=== PATIENT | male | born 1970 | race Caucasian/White ===

== ENCOUNTER 2018-05-10 00:11 | Inpatient (IN) | payer BC ==
--- OUTSIDE RECORDS SUMMARY | 2018-05-10 00:13 | XMS REPORT ---
:1970 Author Organization eClinicalWorks Care Team Providers Name Role Phone Vale Mcclelland Provider Role Unavailable Allergies, Adverse Reactions, Alerts Substance Reaction Event Type Compazine Info Not Available Drug Allergy Problems Problem Type Condition Code Onset Dates Condition Status Assessment Acute non-recurrent frontal J01.10 Active sinusitis Assessment Cough with hemoptysis R04.2 Active Problem Seasonal allergies J30.2 Active Problem Coronary artery disease involving I25.810 Active coronary bypass graft of [place] heart, angina presence unspecified Problem Cigarette nicotine dependence with F17.218 Active other nicotine-induced disorder Assessment Cigarette nicotine dependence with F17.218 Active other nicotine-induced disorder Problem Gastrointestinal infection A09 Active Problem Coronary stent patent Z95.5 Active Medications Medication Code Code Instructions Start End Status Dosage System Date Date Lisinopril [facility] 89198039680 2.5 MG Oral Active not defined Metoprolol [facility] 22660509991 25 MG Oral Active not Succinate ER defined Atorvastatin [facility] 28687137663 80 MG Oral Active not Calcium defined ProAir HFA [facility] [id number] 108 (90 Base) October 22, Active 2 puffs as MCG/ACT 2018 needed Inhalation every [address] [facility] 48260283919 50 MCG/ACT October 22, Active 1 spray in Propionate Nasally Once a 2018 each day nostril Bromfed DM [facility] 95294081984 30-2-10 MG/5ML Mar 03, Mar 13, Active 10 ml as Orally every 6 2017 2018 needed hrs Results Name Result Date Reference Range Unit Abnormality Flag Chest Pa And Lat (2 Views) Summary Purpose eClinicalWorks Submission
--- OUTSIDE RECORDS SUMMARY | 2018-05-10 00:13 | XMS REPORT ---
:1970 Author Organization eClinicalWorks Care Team Providers Name Role Phone Vale Mcclelland Provider Role Unavailable Allergies, Adverse Reactions, Alerts Substance Reaction Event Type Compazine Info Not Available Drug Allergy Problems Problem Type Condition Code Onset Dates Condition Status Problem Coronary artery disease involving I25.810 Active coronary bypass graft of [place] heart, angina presence unspecified Problem Gastrointestinal infection A09 Active Problem Seasonal allergies J30.2 Active Assessment Coronary stent patent Z95.5 Active Assessment Coronary artery disease involving I25.810 Active coronary bypass graft of [place] heart, angina presence unspecified Problem Coronary stent patent Z95.5 Active Medications Medication Code Code Instructions Start End Status Dosage System Date Date Lisinopril [facility] 22596804286 2.5 MG Oral Active not defined Atorvastatin [facility] 77021370702 80 MG Oral Active not Calcium defined Metoprolol [facility] 37083395293 25 MG Oral Active not Succinate ER defined Fluticasone [facility] 78258659745 50 MCG/ACT October 22, Active 1 spray in Propionate Nasally Once a 2018 each day nostril ProAir HFA [facility] 26820350860 108 (90 Base) October 22, Active 2 puffs as MCG/ACT 2018 needed Inhalation every 6 hrs Results No Known Results Summary Purpose eClinicalWorks Submission
--- OUTSIDE RECORDS SUMMARY | 2018-05-10 00:13 | XMS REPORT ---
:1970 Author Organization eClinicalWorks Care Team Providers Name Role Phone Marvin Anthony Provider Role Unavailable Allergies, Adverse Reactions, Alerts Substance Reaction Event Type Compazine Info Not Available Drug Allergy Problems Problem Type Condition Code Onset Dates Condition Status Problem Coronary artery disease involving I25.810 Active coronary bypass graft of [place] heart, angina presence unspecified Problem Gastrointestinal infection A09 Active Problem Seasonal allergies J30.2 Active Assessment Bronchitis J40 Active Problem Coronary stent patent Z95.5 Active Assessment Upper respiratory disease J39.9 Active Medications Medication Code Code Instructions Start End Status Dosage System Date Date Atorvastatin [facility] 00404726830 80 MG Oral Active not Calcium defined Lisinopril [facility] 66175768803 2.5 MG Oral Active not defined Fluticasone [facility] 10414065929 50 MCG/ACT October 22, Active 1 spray in Propionate Nasally Once a 2018 each day nostril Loratadine-D [facility] 46927353767 5-120 MG Orally October 22October Active 1 tablet 12HR every 12 hrs 2017, as needed 2017 Metoprolol [facility] 79366281695 25 MG Oral Active not Succinate ER defined ProAir HFA [facility] 96248166897 108 (90 Base) October 22 Active 2 puffs as MCG/ACT 2017 needed Inhalation every 6 hrs Results No Known Results Summary Purpose eClinicalWorks Submission
--- OUTSIDE RECORDS SUMMARY | 2018-05-10 00:13 | XMS REPORT ---
:1970 Author Organization eClinicalWorks Care Team Providers Name Role Phone Vale Mcclelland Provider Role Unavailable Allergies No Known Allergies Problems Problem Type Condition Code Onset Dates Condition Status Problem Seasonal allergies J30.2 Active Problem Coronary artery disease involving I25.810 Active coronary bypass graft of [place] heart, angina presence unspecified Problem Cigarette nicotine dependence with F17.218 Active other nicotine-induced disorder Problem Gastrointestinal infection A09 Active Problem Coronary stent patent Z95.5 Active Medications No Known Medications Results No Known Results Summary Purpose eClinicalWorks Submission
[2018-05-10 01:05] LABS: Protime INR 1.02
[2018-05-10 01:06] LABS: Absolute Lymphocytes (CBC) 2.8 K/uL (0.7-4.9); Absolute Monocytes 0.8 K/uL (0.1-1.3); Absolute Neutrophil 3.9 K/uL (1.8-8.0); Basophils % 0.7 % (0-1.3); Eosinophils % 2.5 % (0-4.4); Hematocrit 44.2 % (39.6-49.0); Lymphocytes % 36.3 % (15.3-44.8); MPV 9.5 fL (7.6-11.3); Monocytes % 10.2 % (3.3-12.3); RBC Red Blood Cell Count 4.92 M/uL (4.33-5.43)
[2018-05-10 01:30] LABS: Albumin 3.7 g/dL (3.4-5.0); Bilirubin Direct 0.1 mg/dL (0-0.2); Bilirubin Total 0.4 mg/dL (0.2-1.0); Potassium 3.9 mmol/L (3.5-5.1); Protein, Total 6.9 g/dL (6.4-8.2); Troponin (Emerg Dept Use Only) 0.04 ng/mL (0.0-0.045)
[2018-05-10] MEDS ORDERED: SUCCINYLCHOLINE 20 MG/ML (10 ML) IV ONE (02:15)
[2018-05-10] MEDS ORDERED: ETOMIDATE 20 MG/10 ML VIAL IV ONE (02:15)
--- NOTE | 2018-05-10 02:15 | ER ---
Nurse's Notes [facility] Name: Eb Alvarez Age: 47 yrs Sex: Male : 1970 Arrival Date: 05/10/2018 Time: 00:12 Bed 20 Private MD: Diagnosis: Chest pain, unspecified;Angina pectoris, unspecified Presentation: 05/10 00:15 Presenting complaint: Patient states: that he was woken up by chest pain that radiated fc to his back and both arms. States that the pain is on and off and only lasted approx 1 minute each time. Denies any shortness of breath, or n/v. Transition of care: patient was not received from another setting of care. Onset of symptoms was May 09, 2018 at 22:30. Risk Assessment: Do you want to hurt yourself or someone else? Patient reports no desire to harm self or others. Initial Sepsis Screen: Does the patient meet any 2 criteria? No. Patient's initial sepsis screen is negative. Does the patient have a suspected source of infection? No. Patient's initial sepsis screen is negative. Care prior to arrival: None. 00:15 Method Of Arrival: Ambulatory fc 00:15 Acuity: ABDOUL 3 Triage Assessment: 00:38 General: Appears in no apparent distress. Behavior is calm, cooperative. Pain: ak1 Complains of pain in chest. Historical: - Allergies: 00:29 Compazine; fc - Home Meds: 00:29 Lisinopril Oral once daily [Active]; Metoprolol Tartrate Oral once daily [Active]; fc atorvastatin oral oral once daily [Active]; aspirin 81 mg oral TbEC 1 tab once daily [Active]; - PMHx: 00:29 Myocardial infarction; Hypertension; High Cholesterol; fc - PSHx: 00:29 None; fc - Immunization history:: Last tetanus immunization: unknown, Flu vaccine is up to date. - Social history:: Smoking status: Patient uses tobacco products, smokes one-half pack cigarettes per day, Patient uses alcohol, on a daily basis. 3-4 drinks. - Ebola Screening: : Patient negative for fever greater than or equal to 101.5 degrees Fahrenheit, and additional compatible Ebola Virus Disease symptoms Patient denies exposure to infectious person Patient denies travel to an Ebola-affected area in the 21 days before illness onset. Screenin:27 Abuse screen: Denies threats or abuse. Nutritional screening: No deficits noted. fc Tuberculosis screening: No symptoms or risk factors identified. Fall Risk None identified. Assessment: 01:15 Reassessment: Patient appears in no apparent distress at this time. No changes from ak1 previously documented assessment. Patient is alert, oriented x 3, equal unlabored respirations, skin warm/dry/pink. Patient denies pain at this time. General: Appears in no apparent distress. Behavior is calm, cooperative. Pain: Complains of pain in chest. Pain: Pain does not radiate. Pain began 4 hours ago. Neuro: No deficits noted. Cardiovascular: Reports chest pain, Denies diaphoresis, nausea, shortness of breath, vomiting, Rhythm is sinus rhythm. Respiratory: No deficits noted. GI: No signs and/or symptoms were reported involving the gastrointestinal system. : No signs and/or symptoms were reported regarding the genitourinary system. EENT: No signs and/or symptoms were reported regarding the EENT system. Derm: No signs and/or symptoms reported regarding the dermatologic system. Musculoskeletal: No signs and/or symptoms reported regarding the musculoskeletal system. 02:22 Reassessment: Patient appears in no apparent distress at this time. No changes from ak1 previously documented assessment. Patient is alert, oriented x 3, equal unlabored respirations, skin warm/dry/pink. 04:35 General: pt c/o chest pain. Dr. Crenshaw notified with verbal orders for 50mg tramadol ak1 PO. pt resp even and unlabored, skin warm and dry. pt denies N/V. . Vital Signs: 00:15 BP 108 / 78; Pulse 74; Resp 16; Temp 97.9(O); Pulse Ox 96% on R/A; Weight 120.2 kg (R); fc Height 5 ft. 11 in. (180.34 cm) (R); Pain 0/10; 01:14 BP 109 / 76; Pulse 73; Resp 17; Pulse Ox 95% on R/A; ak1 02:22 BP 89 / 61; Pulse 65; Resp 16; Pulse Ox 96% on R/A; Pain 0/10; ak1 04:37 BP 91 / 57; Pulse 69; Resp 16; Temp 97.9; Pulse Ox 96% on R/A; ak1 00:15 Body Mass Index 36.96 (120.20 kg, 180.34 cm) ED Course: 00:12 Patient arrived in ED. es 00:15 Arm band placed on Patient placed in an exam room, on a stretcher. fc 00:15 Patient has correct armband on for positive identification. Placed in gown. Bed in low fc position. Call light in reach. phototypesetting equipment monitor on. Pulse ox on. NIBP on. 00:22 EKG done, by ED staff, reviewed by Sabas Courtney MD. fc 00:26 Triage completed. fc 00:35 Sabas Courtney MD is Attending Physician. tw4 00:37 Shauna Hernandez, RN is Primary Nurse. ak1 00:37 Inserted saline lock: 20 gauge in right antecubital area, using aseptic technique. ak1 Blood collected. Patient maintains SpO2 saturation greater than 95% on room air. 00:50 X-ray completed. Portable x-ray completed in exam room. Patient tolerated procedure sg4 well. 00:51 XRAY Chest (1 view) Sent. ak1 00:52 No provider procedures requiring assistance completed. ak1 01:01 XRAY Chest (1 view) In Process Unspecified. EDMS 01:15 Door closed. Lights dimmed. ak1 02:13 Natalia Em MD is Hospitalizing Provider. tw4 04:37 Patient admitted, IV remains in place. ak1 Administered Medications: 04:37 Drug: traMADol 50 mg Route: PO; ak1 04:37 Follow up: Response: No adverse reaction ak1 Outcome: 02:14 Decision to Hospitalize by Provider. tw4 04:37 Admitted to Tele accompanied by tech, family with patient, via wheelchair, room 431, ak1 with chart, Report called to [facility] 431 04:37 Condition: stable 04:37 Instructed on the need for admit. 05:09 Patient left the ED. ak1 Signatures: Dispatcher [employer] QUANMI Kanwal Husain Felicia, RN RN Shauna Hernandez, RN RN ak Sabas Courtney MD MD tw4 Patricia Cramer sg4
--- NOTE | 2018-05-10 02:15 | EDPHYS ---
Physician Documentation [facility] Name: Eb Alvarez Age: 47 yrs Sex: Male : 1970 Arrival Date: 05/10/2018 Time: 00:12 Bed 20 Private MD: ED Physician Sabas Courtney HPI: 05/10 03:28 This 47 yrs old Male presents to ER via Ambulatory with complaints of Chest tw4 Pain. 03:28 The patient or guardian reports chest pain that is located primarily in the substernal tw4 area. Onset: today. The pain does not radiate. Associated signs and symptoms: The patient has no apparent associated signs or symptoms. The chest pain is described as aching. Duration: The patient or guardian reports a single episode. Modifying factors: The symptoms are alleviated by nothing. the symptoms are aggravated by nothing. Severity of pain: At its worst the pain was very mild in the emergency department the pain has resolved. The patient has not experienced similar symptoms in the past. Historical: - Allergies: 00:29 Compazine; fc - Home Meds: 00:29 Lisinopril Oral once daily [Active]; Metoprolol Tartrate Oral once daily [Active]; fc atorvastatin oral oral once daily [Active]; aspirin 81 mg oral TbEC 1 tab once daily [Active]; - PMHx: 00:29 Myocardial infarction; Hypertension; High Cholesterol; fc - PSHx: 00:29 None; fc - Immunization history:: Last tetanus immunization: unknown, Flu vaccine is up to date. - Social history:: Smoking status: Patient uses tobacco products, smokes one-half pack cigarettes per day, Patient uses alcohol, on a daily basis. 3-4 drinks. - Ebola Screening: : Patient negative for fever greater than or equal to 101.5 degrees Fahrenheit, and additional compatible Ebola Virus Disease symptoms Patient denies exposure to infectious person Patient denies travel to an Ebola-affected area in the 21 days before illness onset. ROS: 03:28 Constitutional: Negative for fever, chills, and weight loss, Eyes: Negative for injury, tw4 pain, redness, and discharge, Respiratory: Negative for shortness of breath, cough, wheezing, and pleuritic chest pain, Abdomen/GI: Negative for abdominal pain, nausea, vomiting, diarrhea, and constipation, Back: Negative for injury and pain. 03:28 Cardiovascular: Positive for chest pain, Negative for edema, orthopnea, palpitations, paroxysmal nocturnal dyspnea. Exam: 03:28 Constitutional: This is a well developed, well nourished patient who is awake, alert, tw4 and in no acute distress. Head/Face: Normocephalic, atraumatic. Chest/axilla: Normal chest wall appearance and motion. Nontender with no deformity. No lesions are appreciated. Cardiovascular: Regular rate and rhythm with a normal S1 and S2. No gallops, murmurs, or rubs. Normal PMI, no JVD. No pulse deficits. Respiratory: Lungs have equal breath sounds bilaterally, clear to auscultation and percussion. No rales, rhonchi or wheezes noted. No increased work of breathing, no retractions or nasal flaring. Abdomen/GI: Soft, non-tender, with normal bowel sounds. No distension or tympany. No guarding or rebound. No evidence of tenderness throughout. Back: No spinal tenderness. No costovertebral tenderness. Full range of motion. MS/ Extremity: Pulses equal, no cyanosis. Neurovascular intact. Full, normal range of motion. Neuro: Awake and alert, GCS 15, oriented to person, place, time, and situation. Cranial nerves II-XII grossly intact. Motor strength 5/5 in all extremities. Sensory grossly intact. Cerebellar exam normal. Normal gait. Vital Signs: 00:15 BP 108 / 78; Pulse 74; Resp 16; Temp 97.9(O); Pulse Ox 96% on R/A; Weight 120.2 kg (R); fc Height 5 ft. 11 in. (180.34 cm) (R); Pain 0/10; 01:14 BP 109 / 76; Pulse 73; Resp 17; Pulse Ox 95% on R/A; ak1 02:22 BP 89 / 61; Pulse 65; Resp 16; Pulse Ox 96% on R/A; Pain 0/10; ak1 04:37 BP 91 / 57; Pulse 69; Resp 16; Temp 97.9; Pulse Ox 96% on R/A; ak1 00:15 Body Mass Index 36.96 (120.20 kg, 180.34 cm) MDM: 00:35 Patient medically screened. 05/10 00:36 Order name: Basic Metabolic Panel 4 05/10 00:36 Order name: CBC with Diff tw4 05/10 00:36 Order name: LFT's tw4 05/10 00:36 Order name: Magnesium tw4 05/10 00:36 Order name: NT PRO-BNP tw4 05/10 00:36 Order name: PT-INR tw4 05/10 00:36 Order name: Troponin (emerg Dept Use Only) tw4 05/10 00:36 Order name: XRAY Chest (1 view) tw4 05/10 00:36 Order name: EKG; Complete Time: 00:37 tw4 05/10 00:36 Order name: Cardiac monitoring; Complete Time: 00:37 tw4 05/10 00:36 Order name: EKG - Nurse/Tech; Complete Time: 00:37 tw4 05/10 00:36 Order name: IV Saline Lock; Complete Time: 00:37 tw4 05/10 00:36 Order name: Basic Metabolic Panel [facility] 05/10 00:36 Order name: Labs collected and sent; Complete Time: 00:37 tw4 05/10 00:36 Order name: O2 Per Protocol; Complete Time: 00:51 tw4 05/10 00:36 Order name: O2 Sat Monitoring; Complete Time: 00:51 tw4 EC:48 Rate is 75 beats/min. Rhythm is regular. QRS [place] is Normal. [place] interval is normal. QRS tw4 interval is normal. QT interval is normal. No Q waves. T waves are Normal. No ST changes noted. Clinical impression: Normal ECG. Interpreted by me. Reviewed by me. Administered Medications: 04:37 Drug: traMADol 50 mg Route: PO; ak1 04:37 Follow up: Response: No adverse reaction ak1 Disposition: 05/10/18 02:14 Hospitalization ordered by Natalia Em for Observation. Preliminary diagnosis are Chest pain, unspecified, Angina pectoris, unspecified. - Bed requested for Telemetry/MedSurg (observation). - Status is Observation. ak1 - Condition is Stable. - Problem is new. - Symptoms have improved. UTI on Admission? No Signatures: Dispatcher [employer] EDMS Meg Valles RN RN kl Chretien, Felicia, RN RN fc Krenek, Amber, RN RN ak1 Sabas Courtney MD MD tw4 Corrections: (The following items were deleted from the chart) 04:34 02:14 Hospitalization Ordered by Natalia Em MD for Observation. Preliminary kl diagnosis is Chest pain, unspecified; Angina pectoris, unspecified. Bed requested for Telemetry/MedSurg (observation). Status is Observation. Condition is Stable. Problem is new. Symptoms have improved. UTI on Admission? No. tw4 05:09 04:34 05/10/2018 02:14 Hospitalization Ordered by Natalia Em MD for Observation. ak1 Preliminary diagnosis is Chest pain, unspecified; Angina pectoris, unspecified. Bed requested for Telemetry/MedSurg (observation). Status is Observation. Condition is Stable. Problem is new. Symptoms have improved. UTI on Admission? No. kl
--- NOTE | 2018-05-10 04:01 | P.HP ---
Certification for Inpatient Patient admitted to: Observation With expected LOS: <2 Midnights Practitioner: I am a practitioner with admitting privileges, knowledge of patient current condition, hospital course, and medical plan of care. Services: Services provided to patient in accordance with Admission requirements found in Title 42 Section 412.3 of the Code of Federal Regulations Patient History Date of Service: 05/10/18 Reason for admission: chest pain History of Present Illness: Mr Alvarez is a 47 years old male with history of CAD, HTN, dyslipidemia, who start yesterday morning with pressure like chest pain episodes. The pain was substernal located, radiated to both shoulders, 8/10 of intensity, associated with some SOB and dizziness. The pain episode last for about 1 minute each time. He denied nausea, vomiting or sweating episodes. He has had this kind of pain in the past when he had his heart attack. The patient is followed up by Dr Pruett, and he already has scheduled a stress test. lab work shows normal trop I, EKG shows no ST-T abnormalities. At my encounter the patient was chest pain free. Allergies prochlorperazine [From Compazine] Allergy (Verified 05/10/18 02:53) Hives Home medications list reviewed: Yes - Past Medical/Surgical History -: CAD -: HTN -: dyslipidemia Past Surgical History: Reviewed- Non-Contributory - Family History Family History: Reviewed- Non-Contributory - Social History Smoking Status: Current every day smoker Counseled patient to stop smoking for: less than 10 minutes Smoking therapy provided: Yes Alcohol use: Yes CD- Drugs: No Place of Residence: Home Review of Systems 10-point ROS is otherwise unremarkable Physical Examination - Physical Exam General: Alert, In no apparent distress HEENT: Atraumatic, PERRLA, Mucous membr. moist/pink, EOMI, Sclerae nonicteric Neck: Supple, 2+ carotid pulse no bruit, No LAD, Without JVD or thyroid abnormality Respiratory: Clear to auscultation bilaterally, Normal air movement Cardiovascular: Regular rate/rhythm, Normal S1 S2 Gastrointestinal: Normal bowel sounds, No tenderness Musculoskeletal: No tenderness Integumentary: No rashes Neurological: Normal speech, Normal strength at 5/5 x4 extr, Normal tone, Normal affect Lymphatics: No axilla or inguinal lymphadenopathy - Studies Laboratory Data (last 24 hrs) 05/10/18 00:35: PT 12.0, INR 1.02 05/10/18 00:35: WBC 7.8, Hgb 15.4, Hct 44.2, Plt Count 180 05/10/18 00:35: Sodium 141, Potassium 3.9, BUN 14, Creatinine 1.00, Glucose 94, Magnesium 2.0, Total Bilirubin 0.4, AST 25, ALT 61, Alkaline Phosphatase 74 Assessment and Plan - Problems (Diagnosis) (1) CAD (coronary artery disease) Current Visit: Yes Status: Acute Qualifiers: Coronary Disease-Associated Artery/Lesion type: [place] artery [place] vs. transplanted heart: [place] heart Associated angina: with unspecified angina Qualified Code(s): I25.119 - Atherosclerotic heart disease of [place] coronary artery with unspecified angina pectoris (2) Chest pain Current Visit: Yes Status: Acute Qualifiers: Chest pain type: precordial pain Qualified Code(s): R07.2 - Precordial pain (3) HTN (hypertension) Current Visit: Yes Status: Acute Qualifiers: Hypertension type: essential hypertension Qualified Code(s): I10 - Essential (primary) hypertension (4) Dyslipidemia Current Visit: Yes Status: Acute (5) Tobacco abuse Current Visit: Yes Status: Acute - Plan The patient will be admitted to the hospital due to chest pain. Will order serial cardiac enzymes and EKG. Consult cardiology team for evaluation and recommendations. - Advance Directives Does patient have a Living Will: No Does patient have a Durable POA for Healthcare: No - Code Status/Comfort Care Code Status Assessed: Yes Code Status: Full Code
[2018-05-10] MEDS ORDERED: TRAMADOL HCL 50 MG TAB ONE (04:40)
[2018-05-10] MEDS ORDERED: RSI MEDICATION KIT IV ONE (05:35)
[2018-05-10] MEDS: PROPOFOL 1,000 MG/100 ML VIAL IV ONE (05:58)
[2018-05-10] MEDS ORDERED: AMIODARONE HCL 150 MG/3 ML INJ IV ONE ×2 (06:05→11:30)
[2018-05-10] MEDS ORDERED: HEPARIN/D5W 25,000 UNIT/500 ML BAG IV ONE (06:13)
[2018-05-10] MEDS ORDERED: HEPARIN 5000 UNIT/ML 1 ML VIAL ONE (06:19)
[2018-05-10] MEDS ORDERED: MIDAZOLAM HCL 2 MG/2 ML INJ ONE ×3 (06:21→08:55)
[2018-05-10] MEDS ORDERED: PRASUGREL (EFFIENT) 10 MG TAB PO ONE (06:32)
[2018-05-10] MEDS ORDERED: ONDANSETRON 4 MG/2 ML VIAL IV PRN (06:41)
[2018-05-10 06:49] LABS: Arterial Blood Carboxyhemoglob 0.6 % (0-1.5); Blood Gas Oxyhemoglobin 88.5 % (94-97); Blood O2 Saturation 89.5 % (92-98.5)
[2018-05-10] MEDS ORDERED: PRASUGREL (EFFIENT) 10 MG TAB ONE (06:52)
--- NOTE | 2018-05-10 07:03 | EKG ---
Test Date: 2018-05-10 Test Time: 00:22:07 Cemetery Counselor: JESSICA MEASUREMENT RESULTS: Intervals: Rate: 75 SC: 174 QRSD: 102 QT: 388 QTc: 433 [place]: P: 35 SC: 174 QRS: 21 T: 32 INTERPRETIVE STATEMENTS: Normal sinus rhythm Normal ECG No previous ECG available for comparison Electronically Signed On 05-10-18 07:02:49 CELL BIOLOGY SCIENTIST by David Washburn
[2018-05-10] MEDS ORDERED: HEPA 1000U/500MLS 2,000 UNIT/1,000 ML BAG IV ONE (07:05)
[2018-05-10] MEDS ORDERED: LIDOCAINE 1% MPF 30 ML VIAL ONE (07:05)
[2018-05-10] MEDS ORDERED: NA CHLORIDE 0.9% 50 ML ONE ×2 (07:21→08:34)
[2018-05-10] MEDS ORDERED: FENTANYL CITR 100 MCG/2 ML ONE (07:21)
[2018-05-10] MEDS ORDERED: PROPOFOL 1,000 MG/100 ML VIAL IV ONE (07:30)
--- NOTE | 2018-05-10 07:30 | RAD REPORT ---
EXAM DESCRIPTION: Jann Single View05/10/2018 7:15 am CLINICAL HISTORY: Shortness of breath COMPARISON: May 10, 2018 FINDINGS: Endotracheal tube has its tip 4 centimeters above the amol. Nasogastric tube has its ti p in the proximal stomach couple centimeters from the GE junction. The lungs are mildly hazy which may indicate mild interstitial pulmonary edema. The heart is normal size
[2018-05-10 07:54] LABS: Troponin I 0.43 ng/mL (0.0-0.045)
[2018-05-10] MEDS ORDERED: AMIODARONE HCL 450 MG in D5W 241 ML IV SCH ×2 (08:00→17:00)
[2018-05-10] MEDS ORDERED: AMIODARONE HCL 900 MG in Dextrose 5%-Water 482 ML IV SCH (08:00)
--- NOTE | 2018-05-10 08:01 | P.PN ---
Date of Service: 05/10/18 The patient was admitted to the hospital due to chest pain in order to R/O ACS, initial EKG showed no acute ST-T changes, and Troponin I was negative. Then ASA , Statins, lovenox was ordered per chest pain protocol. Before to be moved to the floor, he start complaining of chest pain again, with similar characteristics, pain medication was ordered. As soon the patient was transferred to the room, he become unresponsive, code blue was calling and advance ACLS protocol was started. monitoring and evaluation advisor was consistent with VTACH, he was shocked and successfully cardioverted. Subsequently he was intubated, it was not an easy airway, requiring several attemps, and finally successful with the glydoscope after it arrived to the room from ER. The patient then repeated several times sustained VTACH episodes, all of them were successfully cardioverted. After receive IV Magnesium sulfate and Amiodarone bolus, his rhythm remain sinus. New EKG was able to be done, at this time it was remarkable for ST elevation in anterior leads. I personally discuss the case with Dr Washburn (Cardiology service). 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 The patient then was agitated on the ventilator machine requiring increase the dose of sedative medication.
--- NOTE | 2018-05-10 08:46 | RAD REPORT ---
EXAM DESCRIPTION: Jann Single View05/10/2018 1:00 am CLINICAL HISTORY: Chest pain COMPARISON: February 2018 FINDINGS: The lungs appear clear of acute infiltrate. The heart is normal size IMPRESSION: No acute abnormalities displayed
[2018-05-10] MEDS ORDERED: SODIUM CHLORIDE 0.9% 10ML INJ IV PRN (08:47)
[2018-05-10] MEDS: METOPROLOL TARTRATE 5 MG/5 ML INJ IV SCH ×4 (09:00→21:42)
[2018-05-10] MEDS ORDERED: ASPIRIN EC 81 MG TAB PO SCH (09:00)
[2018-05-10] MEDS ORDERED: PROPOFOL 200 MG/20 ML VIAL IV ONE (09:39)
[2018-05-10] MEDS: PROPOFOL 1,000 MG/100 ML VIAL IV PRN ×2 (09:55→11:52)
[2018-05-10] MEDS ORDERED: ACETAMINOPHEN 325 MG TABLET PO PRN (10:00)
[2018-05-10] MEDS ORDERED: NITROGLYCERIN 0.4 MG/TAB SL PRN (10:00)
[2018-05-10] MEDS ORDERED: NA CHLORIDE 0.9% 1,000 ML IV SCH (10:00)
[2018-05-10] MEDS ORDERED: EPINEPHrine 1 MG/10 ML SYR IV ONE ×2 (11:21→11:30)
[2018-05-10] MEDS ORDERED: MAGNESIUM SULF 1GM/2ML VIAL IM ONE (11:30)
--- NOTE | 2018-05-10 11:48 | ECHO ---
HEIGHT: 5 ft 11 in WEIGHT: 286 lb 0 oz DATE OF STUDY: 05/10/[address]: Natalia Crenshaw MD 2-DIMENSIONAL: YES M.MODE: YES DOPPLER: YES COLOR FLOW: YES TDS: NO PORTABLE: NO DEFINITY: NO BUBBLE STUDY: NO DIAGNOSIS: ANTERIOR STEMI CARDIAC HISTORY: CATHERIZATION: SURGERY: PROSTHETIC VALVE: PACEMAKER: MEASUREMENTS (cm) DIASTOLIC (NORMALS) SYSTOLIC (NORMALS) IVSd 1.0 (0.6-1.2) LA Diam 3.9 (1.9-4.0) LVEF 35-39% LVIDd 4.9 (3.5-5.7) LVIDs 3.9 (2.0-3.5) %FS 19% LVPWd 1.1 (0.6-1.2) Ao Diam 3.3 (2.0-3.7) 2 DIMENSIONAL ASSESSMENT: RIGHT ATRIUM: NORMAL LEFT ATRIUM: DILATED RIGHT VENTRICLE: NORMAL LEFT VENTRICLE: NORMAL TRICUSPID VALVE: NORMAL MITRAL VALVE: NORMAL PULMONIC VALVE: NORMAL AORTIC VALVE: NORMAL PERICARDIAL EFFUSION: NONE AORTIC ROOT: NORMAL LEFT VENTRICULAR WALL MOTION: ANTERIOR, APICAL DISTAL SEPTAL HYPOKINESIS. DOPPLER/COLOR FLOW: MILD MITRAL REGURGITATION. COMMENTS: DEPRESSED LEFT VENTRICULAR EJECTION FRACTION WITH WALL MOTION ABNORMALITY. DILATED LEFT ATRIUM. MILD MITRAL REGURGITATION. TECHNOLOGIST: SIGIFREDO DUDLEY
--- NOTE | 2018-05-10 11:48 | CON ---
A 47-year-old man. History Of Present Illness: Mr. Alvarez is 47. He started having chest pain at 11 last night, came to the emergency room where EKGs and enzymes seemed to be fine. The chest pain he had initially went a way. His troponin was 0.04, and about 6 o'clock this morning roughly half an hour ago, he had a card iac arrest that was V-tach, V-fib. He got amiodarone and he got a cardioverted intubated. He is on propofol drip and he is heavily sedated in sinus rhythm and his EKG shows anterior ST elevation. The patient has a prior history of anterior TN with stents. He had stents placed in his LAD artery, I sophie costello that was done in [place]. We do not have any of the records from that hospitalization. He has been seeing a conciliation court judge ever since then. It was roughly 8 years ago that happened. He contin ues to smoke cigarettes. His outpatient medications had been, it looks like we do not have any list anywhere. Hopefully, the can be helpful and provide those. Apparently, there was lisinopril, m etoprolol, and aspirin, not one of the drugs we usually give dual anti-platelet therapy. Physical Examination: General: He is obese, nonresponsive, intubated. Vital Signs: Blood pressure is 91/39, pulse 56. HEENT: Unremarkable. Lungs: Bilateral breath sounds and found to have mechanical ventilation sounds. Heart: Regular rate and rhythm. Extremities: Mild edema. Distal pulses diminished, palpable. EKG; anterior TN. Assessment And Plan: The patient needs to go to the supervisor laboratory emergently and have an attempt at openi ng up his blocked artery, which is most likely the LAD. The has given us informed consent. He has a creatinine of 1 and a hemo globin of 15, platelet count 180,000. ERNESTINA/TERESITA Voice ID: [id number] Report ID: [id number]
[2018-05-10] MEDS: PANTOPRAZOLE 40 MG INJ IVP SCH (11:53)
[2018-05-10] MEDS: CLOPIDOGREL 75 MG TABLET PO SCH (11:53)
[2018-05-10 12:07] LABS: Blood Gas Oxyhemoglobin 97.4 % (94-97); Blood O2 Saturation 99.1 % (92-98.5)
[2018-05-10] MEDS: ASPIRIN 81 MG CHEWABLE TABLET PO SCH (12:12)
[2018-05-10] MEDS ORDERED: LEVALBUTEROL 0.63 MG/3 ML NEB NEB ONE (13:08)
[2018-05-10] MEDS ORDERED: HYDROCODONE/APAP 7.5/325 MG TAB PO ONE (13:47)
--- NOTE | 2018-05-10 13:51 | PN ---
Date of Progress Note: 05/10/2018 Subjective: Patient seen and examined. Chart reviewed and case discussed with RN and Dr. Washburn. at the bedside. Treatment plan explained. All questions were answered. The patient went for cardiac catheterization after STEMI early this morning and Code Blue. The patient had LAD occlusion, which was re-stented. The patient currently on ventilator and sedated. Medications: List reviewed. Physical Examination: Vital Signs: Temperature 97.9, heart rate 69, blood pressure 91/57, respirations 16, O2 96% on ET tube 60% high-flow FiO2. General: Asleep, intubated and sedated. Not in any acute distress. CV: S1, S2. Regular rate and rhythm. Peripheral pulses present. Respiratory: Diminished breath sounds. No wheezing or stridor. Gastrointestinal: Abdomen is soft, nondistended. Positive bowel sounds. Extremities: No clubbing, cyanosis, edema. Neurologic: Nonfocal. Laboratory Data: Troponin 0.43. Triglycerides 213, cholesterol 140, LDL 65, HDL 32. ABG; pH 6.85, pCO2 77.7, PO2 102, bicarb 12.8. Chest x-ray, personally reviewed, shows ET tube 4 cm above amol. NG tube tip in the proximal stomach. Lungs are mildly hazy which may indicate mild interstitial pulmonary edema. Heart is normal in size. Assessment: A 47-year-old male with: 1. ST-elevation myocardial infarction, status post stent in left anterior descending, which was occluded from previous stent. We will continue on Brilinta and chest pain guidelines. 2. Acute respiratory failure. The patient intubated and sedated. We will wean off as tolerated. 3. Coronary artery disease [place] artery and [place] heart with angina. 4. Essential hypertension, currently hypotensive, likely due to sedation. 5. Dyslipidemia. 6. Nicotine dependence with cigarette smoking continuous full counseling will assistant corporation counsel once the patient is awake. 7. Gastrointestinal and deep venous thrombosis prophylaxis addressed. Plan: Monitor closely in ICU setting. /TERESITA Voice ID: [id number] Report ID: [id number]
--- NOTE | 2018-05-10 15:08 | RAD REPORT ---
EXAM DESCRIPTION: Shoulder Right 2 View - 05/10/2018 2:23 pm CLINICAL HISTORY: Shoulder pain COMPARISON: None. TECHNIQUE: Internal and external rotation views of the right shoulder were obtained. FINDINGS: There is no fracture or dislocation. Mild degenerative changes are present at the AC join t. Patient has degenerative change along the undersurface of the acromion and narrowing of the acromi al humeral joint space. No rib abnormality of the upper chest. No pneumothorax ir acute parenchymal f inding of the upper chest. IMPRESSION: Degenerative changes to the acromion and acromial humeral joint space. No fracture or acute right shoulder finding.
--- NOTE | 2018-05-10 15:32 | EKG ---
Test Date: 2018-05-10 Test Time: 06:07:50 Putty Patcher: RT MEASUREMENT RESULTS: Intervals: Rate: 111 WA: 166 QRSD: 106 QT: 356 QTc: 484 [place]: P: 67 WA: 166 QRS: 20 T: 40 INTERPRETIVE STATEMENTS: Sinus tachycardia Anterior infarct, possibly acute ACUTE MO Abnormal ECG Compared to ECG 05/10/2018 00:22:07 Myocardial infarct finding now present Sinus rhythm no longer present Electronically Signed On 05-10-18 15:31:44 METAL PRODUCTS FABRICATOR ASSEMBLER by David Washburn
[2018-05-10] MEDS: FENTANYL CITR 100 MCG/2 ML IV PRN (16:50)
--- NOTE | 2018-05-10 20:06 | OP ---
Surgeon: David Washburn MD Procedures: Left heart catheterization, coronary angiography, percutaneous coronary intervention of a totally occluded proximal LAD which was successful. Indication: Acute ST-elevation AL. Procedure Findings: The patient's right coronary, circumflex, and left main were free of any signifi cant disease. His LAD had been stented previously and right within the stents there was 100% occlusi on. LENNY 0 flow. Did not really pickle solution maker any collateral flow to the distal part of the LAD from the right. As soon as we saw this, he was given Angiomax, Effient 60 mg, and aspirin. We used an XB 3.5 guide catheter, successfully crossed the lesion with a wire. We could not advance the balloon even a 2.0 x 8, so we had to exchange guides. An XB 4 similarly gave no support. An XB 4.5 with side hol es successfully gave good support. We were able to cross the lesion, pre-dilated with a 2.0 x 8 ball oon, then a 3.0 x 12 balloon. There were probably 15 separate inflations with these 2 balloons. We then felt we had it dilated enough to place a stent, so a 3.0 x 20 stent was advanced, and it was suc cessfully deployed right across the lesion. The angiographic result revealed 0% stenosis, LENNY grade 3 flow. No LV gram was done. We will follow him with serial echocardiography. During the procedur e, he was intubated and on propofol and Versed with the help of Dr. Sherwood from Anesthesia with his sedation. After prep and drape, we used 1% lidocaine to anesthetize the skin over the right femoral artery, entered it with an 18-gauge needle, 6-Romansh sheath, 6-Romansh JL4 and 6-Romansh 3DRC, and then the guide catheter as described above. The 1 that worked was an XB 4.5 with side holes and the isreal l angiographic result was excellent. He was given Angiomax as soon as the sheath was in, activated clotting time was demonstra harry to be more than 400 seconds. ERNESTINA/TERESITA Voice ID: [id number] Report ID: [id number]
[2018-05-10] MEDS: HYDROCODONE/APAP 7.5/325 MG TAB PO PRN (20:15)
[2018-05-10] MEDS: ATORVASTATIN 80 MG TAB PO SCH (21:42)
[2018-05-11] MEDS: HYDROCODONE/APAP 7.5/325 MG TAB PO PRN ×4 (03:10→18:03)
[2018-05-11] MEDS: METOPROLOL TARTRATE 5 MG/5 ML INJ IV SCH (03:38)
[2018-05-11] MEDS: FENTANYL CITR 100 MCG/2 ML IV PRN (03:39)
[2018-05-11 05:26] LABS: Absolute Lymphocytes (CBC) 1.5 K/uL (0.7-4.9); Absolute Monocytes 1.2 K/uL (0.1-1.3); Absolute Neutrophil 9.2 K/uL (1.8-8.0); Basophils % 0.2 % (0-1.3); Eosinophils % 0.3 % (0-4.4); Hematocrit 43.4 % (39.6-49.0); Lymphocytes % 12.6 % (15.3-44.8); MPV 9.2 fL (7.6-11.3); Monocytes % 9.8 % (3.3-12.3); RBC Red Blood Cell Count 4.83 M/uL (4.33-5.43)
--- NOTE | 2018-05-11 06:03 | EKG ---
Test Date: 2018-05-10 Test Time: 08:53:06 Slitting Machine Operator: LUI MEASUREMENT RESULTS: Intervals: Rate: 99 LA: 162 QRSD: 102 QT: 384 QTc: 492 [place]: P: 60 LA: 162 QRS: 38 T: 65 INTERPRETIVE STATEMENTS: Sinus rhythm with occasional premature ventricular complexes Low voltage QRS Anterolateral infarct, age undetermined Abnormal ECG Compared to ECG 05/10/2018 06:07:50 Ventricular premature complex(es) now present Low QRS voltage now present Sinus tachycardia no longer present Myocardial infarct finding still present Electronically Signed On 05-11-18 06:03:20 MAINTENANCE PLUMBER by David Washburn
[2018-05-11 07:16] LABS: ALT/SGPT 231 U/L (12-78); Albumin 3.6 g/dL (3.4-5.0); Alkaline Phosphatase 67 U/L (45-117); BUN Blood Urea Nitrogen 9 mg/dL (7-18); Bicarbonate 29 mmol/L (21-32); Bilirubin Total 1.1 mg/dL (0.2-1.0); Glucose Level 102 mg/dL (74-106); Potassium 4.1 mmol/L (3.5-5.1); Protein, Total 6.7 g/dL (6.4-8.2); Sodium Level 137 mmol/L (136-145)
[2018-05-11 07:29] LABS: AST/SGOT 566 U/L (15-37)
[2018-05-11] MEDS: CLOPIDOGREL 75 MG TABLET PO SCH (08:08)
[2018-05-11] MEDS: ASPIRIN 81 MG CHEWABLE TABLET PO SCH (08:08)
[2018-05-11] MEDS: METOPROLOL XL 25 MG TAB PO SCH ×2 (08:10→20:52)
[2018-05-11] MEDS: PANTOPRAZOLE 40 MG INJ IVP SCH (08:11)
--- NOTE | 2018-05-11 08:32 | P.CNS ---
Date of Consult: 05/10/18 Chief Complaint: Respiratory failure History of Present Illness: Patient is 47 years of age admitted with a card infarction occlusion of left anterior descending artery developed some pulmonary edema had to be intubated at the time of my evaluation patient was extremely agitated on a propofol drip at duration satisfactory hemodynamically stable currently he is an active smoker history of prior stents Allergies prochlorperazine [From Compazine] Allergy (Verified 05/10/18 02:53) Hives Home Medications: Atorvastatin Calcium [Lipitor] 80 mg PO DAILY 05/10/18 Lisinopril [Zestril] 2.5 mg PO DAILY 05/10/18 Metoprolol Succinate 25 mg PO DAILY 05/10/18 - Past Medical/Surgical History Diabetic: No -: CAD -: PA -: dyslipidemia -: LAD stent - Social History Smoking Status: Current every day smoker Alcohol use: Yes CD- Drugs: No Caffeine use: Yes Place of Residence: Home Review of Systems is unable to be obtained Physical Examination Temp Pulse Resp BP Pulse Ox 98.3 F 102 H 18 109/66 94 05/11/18 04:00 05/11/18 08:10 05/11/18 07:00 05/11/18 08:10 05/11/18 07:00 General: Moderate distress Respiratory: Clear to auscultation bilaterally Cardiovascular: No edema, Regular rate/rhythm Gastrointestinal: Normal bowel sounds, Soft and benign - Problems (1) Respiratory failure Current Visit: Yes Status: Acute Plan: Patient is 47 years of age admitted with complete occlusion of his left anterior descending artery he was successfully recannulized intubated transferred here to the ICU is currently very agitated hemodynamically stable oxygenation satisfactory chest x-ray no obvious pulmonary edema opponents were very elevated patient's propofol was stopped and was successfully extubated he has a prior history of coronary artery disease with a stent placement advice to stop smoking labs reviewed the prior to intubation he was hypoxic hypercapnic and acidotic patient was successfully extubated and this morning is very alert responsive cooperative denies any complaints blood pressure is slightly low oxygenation satisfactory Qualifiers: Chronicity: acute
--- NOTE | 2018-05-11 16:19 | PN ---
Date of Progress Note: 05/11/2018 Subjective: The patient was seen today on 05/11/2018 for followup. Mr. Alvarez is 47 and was admitted with ST-elevation myocardial infarction, cardiac arrest, underwent an emergency catheterization yest erday with re-stenting of a proximal LAD, complete closure of the stent. An overnight he did very we ll. He has no issues as far as the right groin. No hematoma. He is not having any chest pain. He is in normal sinus rhythm without any telemetry changes. We will move up to a regular room, telemetr y this afternoon. He remains on aspirin, Plavix, beta-blockers, and a statin. He can go home tomorr ow. CRISTINA/TERESITA Voice ID: [id number] Report ID: [id number]
--- NOTE | 2018-05-11 17:28 | P.PN ---
Subjective Date of Service: 05/11/18 Chief Complaint: Respiratory failure Subjective: No new changes, No C/O voiced, Tolerating diet, Ambulating, Improving Patient seen and examined at bedside. No family at bedside. Chart reviewed and case discussed with nursing staff. Review of Systems As noted Physical Examination - Vital Signs Temperature: 98.5 F Blood Pressure: 89/60 Pulse: 100 Respirations: 18 Pulse Ox (%): 92 - Physical Exam General: Alert, In no apparent distress, Oriented x3 HEENT: Atraumatic, PERRLA, EOMI Neck: Supple, JVD not distended Respiratory: Clear to auscultation bilaterally, Normal air movement Cardiovascular: Regular rate/rhythm, Normal S1 S2 Gastrointestinal: Normal bowel sounds, No tenderness Musculoskeletal: No tenderness Integumentary: No rashes Neurological: Normal speech, Normal tone, Normal affect Lymphatics: No axilla or inguinal lymphadenopathy Assessment And Plan - Plan A 47-year-old male with: ST-elevation myocardial infarction, status post stent in left anterior descending, which was occluded from previous stent. We will continue on Brilinta and chest pain guidelines. Acute respiratory failure. The patient intubated and sedated initially (05/09/2018). Successfully extubated yesterday evening (05/10/18). Oxygenating well on room air, denies any respiratory distress at this time. Coronary artery disease [place] artery and [place] heart with angina. Essential hypertension Blood pressure improved. Continue medications as tolerated Dyslipidemia. Continue statin Nicotine dependence with cigarette smoking Counseled extensively on smoking cessation. DVT prophylaxis: Aspirin and Plavix GI prophylaxis: Protonix Diet: Heart healthy Disposition: Transferred to the floor. Monitor overnight, likely discharge home tomorrow if doing well symptomatically. Discharge Plan: Home Plan to discharge in: 24 Hours Physician Review: Patient Assessed, Agree with Above Assessment and Plan Critical Care: Yes Time Spent Managing PTS Care (In Minutes): 40
[2018-05-11] MEDS: ATORVASTATIN 80 MG TAB PO SCH (20:52)
[2018-05-12 04:40] LABS: Absolute Lymphocytes (CBC) 2.3 K/uL (0.7-4.9); Absolute Monocytes 1.3 K/uL (0.1-1.3); Absolute Neutrophil 5.7 K/uL (1.8-8.0); Basophils % 0.5 % (0-1.3); Eosinophils % 1.7 % (0-4.4); Hematocrit 43.6 % (39.6-49.0); Lymphocytes % 24.2 % (15.3-44.8); MPV 9.6 fL (7.6-11.3); Monocytes % 13.6 % (3.3-12.3); RBC Red Blood Cell Count 4.78 M/uL (4.33-5.43)
[2018-05-12 04:44] LABS: ALT/SGPT 195 U/L (12-78); Albumin 3.7 g/dL (3.4-5.0); Alkaline Phosphatase 69 U/L (45-117); BUN Blood Urea Nitrogen 11 mg/dL (7-18); Bicarbonate 29 mmol/L (21-32); Bilirubin Total 0.9 mg/dL (0.2-1.0); Glucose Level 99 mg/dL (74-106); Protein, Total 7.3 g/dL (6.4-8.2); Sodium Level 138 mmol/L (136-145)
[2018-05-12 04:51] LABS: AST/SGOT 403 U/L (15-37)
[2018-05-12] MEDS: METOPROLOL XL 25 MG TAB PO SCH (08:37)
[2018-05-12] MEDS: PANTOPRAZOLE 40 MG INJ IVP SCH (08:37)
[2018-05-12] MEDS: ASPIRIN 81 MG CHEWABLE TABLET PO SCH (08:38)
[2018-05-12] MEDS: CLOPIDOGREL 75 MG TABLET PO SCH (08:38)
[2018-05-12] MEDS ORDERED: DOCUSATE NA 100 MG CAP PO SCH (09:00)
--- NOTE | 2018-05-12 10:09 | EKG ---
Test Date: 2018-05-12 Test Time: 09:34:42 Inspector Elevators: LUI MEASUREMENT RESULTS: Intervals: Rate: 81 VA: 170 QRSD: 100 QT: 388 QTc: 450 [place]: P: 25 VA: 170 QRS: 46 T: 81 INTERPRETIVE STATEMENTS: Normal sinus rhythm Low voltage QRS Possible Anterolateral infarct, age undetermined Abnormal ECG Compared to ECG 05/10/2018 08:53:06 Ventricular premature complex(es) no longer present Myocardial infarct finding still present Electronically Signed On 05-12-18 10:09:02 PEN TESTER by David Washburn
--- NOTE | 2018-05-12 13:05 | P.DS ---
Admission Date: 05/10/18 Discharge Date: 05/12/18 Disposition: ROUTINE DISCHARGE Discharge Condition: GOOD Reason for Admission: Respiratory failure, Cardiac arrest, STEMI w/ cardiac re- stenting Consultations: Cardiology, Dr. Washburn Pulmonology, Dr. Soto Procedures: 05/10/2018: Cardiac cath w/ re-stenting of LAD 05/10/2018: Intubation and sedation 05/11/2018: Successful extubation Brief History of Present Illness: Mr Alvarez is a 47 years old male with history of CAD, HTN, dyslipidemia, who start yesterday morning with pressure like chest pain episodes. The pain was substernal located, radiated to both shoulders, 8/10 of intensity, associated with some SOB and dizziness. The pain episode last for about 1 minute each time. He denied nausea, vomiting or sweating episodes. He has had this kind of pain in the past when he had his heart attack. The patient is followed up by Dr Pruett, and he already has scheduled a stress test. lab work shows normal trop I, EKG shows no ST-T abnormalities. At my encounter the patient was chest pain free. Hospital Course: Mr. Alvarez was admitted to the hospital due to chest pain in order to rule out ACS, initial EKG showed no acute ST-T-wave changes, and troponin was negative. Chest pain protocol was started with aspirin, statin and Lovenox. He was getting ready to transfer to the floor, when he complained of chest pain in the ER and he was given some pain medications and transfer to the floor. As soon as patient was brought to the floor, he became unresponsive and a code blue was called advanced ACLS protocol was started. Cardiac monitoring was consistent with V-tach he was shocked at successfully cardioverted. He was subsequently intubated, which did require several times because is not easy airway. He was finally successfully intubated and he then had several episodes of V-tach, all of them were successfully cardioverted. He was given IV magnesium sulfate and amiodarone bolus, which stabilized this his rhythm. A repeat EKG was done which was remarkable for ST elevation in anterior leads. He was then transferred to the ICU cardiology was consulted. He was started on the heparin drip along with an amiodarone drip. He was taken to the cardiac cath lab technologist for further evaluation. He did have a previous occluded stent in the left anterior descending coronary artery which required re-stenting. He he was successfully extubated on May 10, 2018, was oxygenating well on room air and was denying any respiratory distress. He was started on aspirin, Plavix, statin, lisinopril and metoprolol post catheterization. He was then transferred to the floor as he was stable. He was then cleared from cardiology point of view for discharge. At the time of discharge, patient was hemodynamically stable, tolerating heart healthy diet, ambulating without problems, and was chest pain free. Vital Signs/Physical Exam: Temp Pulse Resp BP Pulse Ox 99.1 F 81 18 104/67 93 05/12/18 09:00 05/12/18 09:00 05/12/18 09:00 05/12/18 09:00 05/12/18 09:00 General: Alert, In no apparent distress, Oriented x3 HEENT: Atraumatic, PERRLA, EOMI Neck: Supple, JVD not distended Respiratory: Clear to auscultation bilaterally, Normal air movement Cardiovascular: Regular rate/rhythm, Normal S1 S2 Gastrointestinal: Normal bowel sounds, No tenderness Musculoskeletal: No tenderness Integumentary: No rashes Neurological: Normal speech, Normal tone, Normal affect Lymphatics: No axilla or inguinal lymphadenopathy Laboratory Data at Discharge: WBC 9.6 K/uL (4.3-10.9) D 05/12/18 03:32 Hgb 15.2 g/dL (13.6-17.9) 05/12/18 03:32 Hct 43.6 % (39.6-49.0) 05/12/18 03:32 Plt Count 188 K/uL (152-406) 05/12/18 03:32 PT 12.0 SECONDS (9.5-12.5) 05/10/18 00:35 INR 1.02 05/10/18 00:35 Sodium 138 mmol/L (136-145) 05/12/18 03:32 Potassium 4.0 mmol/L (3.5-5.1) 05/12/18 03:32 BUN 11 mg/dL (7-18) 05/12/18 03:32 Creatinine 0.90 mg/dL (0.55-1.3) 05/12/18 03:32 Glucose 99 mg/dL (74-106) 05/12/18 03:32 Magnesium 2.0 mg/dL (1.8-2.4) 05/10/18 00:35 Total Bilirubin 0.9 mg/dL (0.2-1.0) 05/12/18 03:32 AST 403 U/L (15-37) H* D 05/12/18 03:32 ALT 195 U/L (12-78) H 05/12/18 03:32 Alkaline Phosphatase 69 U/L (45-117) 05/12/18 03:32 Troponin I > 40.00 ng/mL (0.0-0.045) H* D 05/10/18 14:41 Triglycerides 213 mg/dL (<150) H 05/10/18 07:12 Cholesterol 140 mg/dL (<200) 05/10/18 07:12 HDL Cholesterol 32 mg/dL (40-60) L 05/10/18 07:12 Cholesterol/HDL Ratio 4.38 05/10/18 07:12 Home Medications: RX: Aspirin Chewable [Aspirin Chewable*] 81 mg PO DAILY tab.chew 05/12/18 RX: Atorvastatin Calcium [Lipitor] 80 mg PO DAILY #30 tab 05/12/18 RX: Clopidogrel Bisulfate [Plavix*] 75 mg PO DAILY #60 tablet 05/12/18 RX: Docusate [Colace Cap*] 100 mg PO BID cap 05/12/18 RX: Lisinopril [Zestril] 2.5 mg PO DAILY #30 tablet 05/12/18 RX: Metoprolol Succinate [Toprol Xl*] 25 mg PO BID #60 tab 05/12/18 RX: Nitroglycerin [Nitrostat*] 0 mg SL UD PRN #15 tab 05/12/18 New Medications: RX: Atorvastatin Calcium [Lipitor] 80 mg PO DAILY #30 tab RX: Clopidogrel Bisulfate [Plavix*] 75 mg PO DAILY #60 tablet RX: Lisinopril [Zestril] 2.5 mg PO DAILY #30 tablet RX: Metoprolol Succinate [Toprol Xl*] 25 mg PO BID #60 tab RX: Nitroglycerin [Nitrostat*] 0 mg SL UD PRN #15 tab PRN Reason: Chest Pain Patient Discharge Instructions: 1) Please follow up with your primary care physician in 1 week. 2) Please follow up with your bulk sealer in 2 weeks. 3 ) ST-elevation myocardial infarction: You were admitted for chest pain, and underwent an angiogram with re-stenting of your Left anterior descending coronary artery. Your previous stent was occluded. It is important that you take all the medications as prescribed. New medications: Plavix and aspirin. Continue taking metoprolol, lisinopril and atorvastatin as prescribed. 4) Acute respiratory failure: you were also intubated during this hospitalization and then extubated successfully. Diet: AHA Activity: No lifting more than 10 lbs Followup: Mitch Pruett MD [ACTIVE - CAN ADMIT] - Claudia Mcclelland NP [Primary Care Provider] - Physician Review: Patient Assessed, Agree with Above Assessment and Plan Time spent managing pt's care (in minutes): 55
--- NOTE | 2018-05-12 13:05 | PN ---
Subjective: Mr. Alvarez seems to be doing very well. I think it is okay to discharge him. He should get prescription for Plavix, Lipitor, metoprolol, and nitroglycerin. He should get an EKG today befo re being discharged. He should have follow up with either me or Dr. Pruett in about 2 weeks. He sh ould absolutely quit all tobacco use. He seems to understand this. ERNESTINA/TERESITA Voice ID: [id number] Report ID: [id number]
== END 2018-05-12 12:10 | disposition home or self-care (01) | DRG 246 ==
LOC: ER 00:11 → ERHOLD 02:14 → 4TH 04:42 → 3RD-ICU 05:47 → OBSVTOIN 08:10 → 4TH 05-11 18:07
PROVIDERS: ADMIT Internal Medicine; ATTEND Family Medicine
PROC: 027034Z Dilation of Coronary Artery, One Artery with Drug-eluting Intraluminal Device, Percutaneous Approach (ICD-10-PCS; principal; 2018-05-10)
PROC: 4A023N7 Measurement of Cardiac Sampling and Pressure, Left Heart, Percutaneous Approach (ICD-10-PCS; 2018-05-10)
PROC: B211YZZ Fluoroscopy of Multiple Coronary Arteries using Other Contrast (ICD-10-PCS; 2018-05-10)
PROC: 5A2204Z Restoration of Cardiac Rhythm, Single (ICD-10-PCS; 2018-05-10)
PROC: 0BH17EZ Insertion of Endotracheal Airway into Trachea, Via Natural or Artificial Opening (ICD-10-PCS; 2018-05-10)
PROC: 5A1935Z Respiratory Ventilation, Less than 24 Consecutive Hours (ICD-10-PCS; 2018-05-10)
DX: I21.3 ST elevation (STEMI) myocardial infarction of unspecified site (principal); I46.9 Cardiac arrest, cause unspecified; J96.00 Acute respiratory failure, unspecified whether with hypoxia or hypercapnia; I47.2 Ventricular tachycardia; T82.855A Stenosis of coronary artery stent, initial encounter; F17.210 Nicotine dependence, cigarettes, uncomplicated; I10 Essential (primary) hypertension; E78.5 Hyperlipidemia, unspecified; I25.2 Old myocardial infarction; Z95.5 Presence of coronary angioplasty implant and graft; I25.119 Atherosclerotic heart disease of native coronary artery with unspecified angina pectoris; I95.9 Hypotension, unspecified; Y92.019 Unspecified place in single-family (private) house as the place of occurrence of the external cause
CPT/HCPCS: 36415; 71045; 80048; 80053; 80061; 80076; 82805; 83735; 83880; 84484; 85025; 85347; 85610; 92928; 93005; 93306; 93454; 94002; 94003; 99285; C1725; C1760; C1877; C1893; C9113; J0171; J0282; J0330; J0583; J1644; J2250; J2704; J3010; J3475; J7030; J7060

== ENCOUNTER 2019-07-23 15:31 | Emergency (ER) | payer BC ==
--- OUTSIDE RECORDS SUMMARY | 2019-07-23 15:33 | XMS REPORT ---
:1970 Author Organization [employer] Care Team Providers Name Role Phone Claudia Mcclelland Provider Role Unavailable Allergies, Adverse Reactions, Alerts Substance Reaction Event Type Compazine Info Not Available Drug Allergy Problems Problem Type Condition Code Onset Dates Condition Status Problem Coronary stent patent Z95.5 Active Problem Coronary artery disease involving I25.810 Active coronary bypass graft of [place] heart, angina presence unspecified Problem Gastrointestinal infection A09 Active Assessment Screening PSA (prostate specific Z12.5 Active antigen) Assessment Encounter for general adult medical Z00.00 Active examination without abnormal findings Problem Cigarette nicotine dependence in F17.211 Active remission Problem Essential hypertension I10 Active Problem Hospital discharge follow-up Z09 Active Problem Hemorrhoids, unspecified hemorrhoid K64.9 Active type Problem Encounter for general adult medical Z00.00 Active examination without abnormal findings Problem Seasonal allergies J30.2 Active Problem Sleep apnea in adult G47.30 Active Problem Screening PSA (prostate specific Z12.5 Active antigen) Medications Medication Code Code Instructions Start End Status Dosage System Date Date Lisinopril [facility] [place] 04124007131 2.5 MG Oral Active not defined Atorvastatin [facility] [place] 70439575911 80 MG Oral Active not Calcium defined Fluticasone ND 23726069632 50 MCG/ACT July Active 1 spray in Propionate Nasally Once a 2018 each day nostril ProAir HFA [facility] [place] [id number] 108 (90 Base) October 22, Active 2 puffs as MCG/ACT 2018 needed Inhalation every 6 hrs Aspirin Adult ND 43458778921 81 MG Orally Active 1 tablet Low Strength Once a day Metoprolol ND 51536786050 25 MG Oral BID Active 1 tablet Succinate ER Pseudoeph-Bromph [facility] [place] [address]-63 Active not en-DM defined Nitroglycerin [facility] [place] 68078696411 0.4 MG Active as Sublingual directed Colace [facility] [place] 15163255543 100 MG Orally Active 1 capsule Twice a day as needed Clopidogrel ND 34795463556 75 MG Orally Active 1 tablet Bisulfate Once a day Results No Known Results Summary Purpose [employer] Submission
--- OUTSIDE RECORDS SUMMARY | 2019-07-23 15:33 | XMS REPORT ---
:1970 Author Organization [facility] Address [address] [place] [address] Dr. Cortez [address] [place] [id number] Care Team Providers Name Role Phone Unavailable Unavailable Unavailable Problems This patient has no known problems. Allergies, Adverse Reactions, Alerts This patient has no known allergies or adverse reactions. Medications This patient has no known medications. Encounters Start End Encounter Admission Attending Care Care Encounter Date/Time Date/Time Type Type Clinicians Facility Department ID 2018 2018 Outpatient E NE MED [id number] 12:22:00 12:22:00
[2019-07-23] MEDS ORDERED: IBUPROFEN 400 MG TAB ONE (16:16)
[2019-07-23] MEDS ORDERED: TETANUS & DIPHTHERIA TOX,ADULT 0.5 ML VIAL ONE (16:16)
--- NOTE | 2019-07-23 16:33 | ER ---
Nurse's Notes [facility] Name: Eb Alvarez Age: 48 yrs Sex: Male : 1970 Arrival Date: 07/23/2019 Time: 15:33 Bed 18 Private MD: Diagnosis: Laceration without foreign body of left hand Presentation: 15:59 Chief complaint: Patient states: putting in floors and hit left index finger with em rubber mallet, laceration noted, tetanus not updated. Coronavirus screen: The patient has NOT traveled to [place] in the past 14 days. Proceed with normal triage procedures. Ebola Screen: Patient negative for fever greater than or equal to 101.5 degrees Fahrenheit, and additional compatible Ebola Virus Disease symptoms Patient denies exposure to infectious person. Patient denies travel to an Ebola-affected area in the 21 days before illness onset. No symptoms or risks identified at this time. Initial Sepsis Screen: Does the patient meet any 2 criteria? No. Patient's initial sepsis screen is negative. Does the patient have a suspected source of infection? Yes: Skin breakdown/wound. Risk Assessment: Do you want to hurt yourself or someone else? Patient reports no desire to harm self or others. 15:59 Method Of Arrival: Ambulatory em 15:59 Acuity: ABDOUL 4 em Historical: - Allergies: 16:04 Compazine; em - PMHx: 16:04 High Cholesterol; Hypertension; Myocardial infarction; em - PSHx: 16:04 heart stents x 3; em - Immunization history:: Last tetanus immunization: unknown, Flu vaccine is up to date. - Social history:: Smoking status: Reported history of juuling and/or vaping. Screenin:59 Abuse screen: Denies threats or abuse. Nutritional screening: No deficits noted. em Tuberculosis screening: No symptoms or risk factors identified. Fall Risk None identified. Assessment: 15:59 General: Appears in no apparent distress. comfortable, Behavior is calm, cooperative. em Pain: Complains of pain in palmar aspect of distal phalanx of left index finger Pain currently is 2 out of 10 on a pain scale. Neuro: Level of Consciousness is awake, alert, obeys commands, Oriented to person, place, time, situation, Appropriate for age. Cardiovascular: Capillary refill < 3 seconds Patient's skin is warm and dry. Respiratory: Airway is patent Respiratory effort is even, unlabored, Respiratory pattern is regular, symmetrical. Derm: Skin is intact, is healthy with good turgor, Skin is pink, warm \T\ dry. Wound noted palmar aspect of distal phalanx of left index finger. Musculoskeletal: Capillary refill < 3 seconds, Range of motion: intact in all extremities. Vital Signs: 15:59 BP 100 / 64; Pulse 85; Resp 18; Temp 97.8; Pulse Ox 95% on R/A; Weight 117.93 kg; em Height 5 ft. 11 in. (180.34 cm); Pain 2/10; 15:59 Body Mass Index 36.26 (117.93 kg, 180.34 cm) em ED Course: 15:33 Patient arrived in ED. mr 15:50 Betito Masterson FNP-C is PHCP. la1 15:50 Huy Olson MD is Attending Physician. la1 15:52 Logan Bailey, POLINA is Primary Nurse. em 15:59 Patient has correct armband on for positive identification. Bed in low position. Call em light in reach. Adult w/ patient. 16:03 Triage completed. em 16:04 Arm band placed on. em 16:32 Patrick Benjamin MD is Referral Physician. la1 16:33 Hand Left 3 View XRAY In Process Unspecified. EDMS 17:01 Wound care: to laceration was cleaned with soap and water, dressed with Neosporin, em 4X4s, Coban . 17:02 No provider procedures requiring assistance completed. Patient did not have IV access em during this emergency room visit. Administered Medications: 16:23 Drug: Ibuprofen 800 mg Route: PO; em 16:51 Follow up: Response: No adverse reaction em 16:23 Drug: Tetanus-Diphtheria Toxoid Adult 0.5 ml {Collar Tailor: [place]. Exp: em 10/28/2020. Lot #: [id number]. } Route: IM; Site: right deltoid; 16:51 Follow up: Response: No adverse reaction em Outcome: 16:32 Discharge ordered by . la1 17:02 Discharged to home ambulatory, with family. em 17:02 Condition: good 17:02 Discharge instructions given to patient, family, Instructed on discharge instructions, follow up and referral plans. wound care, Demonstrated understanding of instructions, follow-up care, wound care. 17:03 Patient left the ED. em Signatures: Dispatcher [employer] Jessy Meneses Edgar, RN RN Betito Prado, CASHIER CREDIT-C CASHIER CREDIT-Cla1
--- NOTE | 2019-07-23 16:33 | EDPHYS ---
Physician Documentation [facility] Name: Eb Alvarez Age: 48 yrs Sex: Male : 1970 Arrival Date: 07/23/2019 Time: 15:33 Bed 18 Private MD: ED Physician Huy Olson HPI: 16:03 This 48 yrs old Male presents to ER via Unassigned with complaints of Finger la1 Injury. 16:03 Trauma demographics: County: The injury occurred in [place]. Mechanism of injury: la1 Crush injury: from a hammer. Associated injuries: The patient sustained palmar aspect of distal phalanx of left index finger. Onset: The symptoms/episode began/occurred just prior to arrival. The patient has not experienced similar symptoms in the past. Historical: - Allergies: 16:04 Compazine; em - PMHx: 16:04 High Cholesterol; Hypertension; Myocardial infarction; em - PSHx: 16:04 heart stents x 3; em - Immunization history:: Last tetanus immunization: unknown, Flu vaccine is up to date. - Social history:: Smoking status: Reported history of juuling and/or vaping. ROS: 16:03 Constitutional: Negative for fever, chills, and weight loss. la1 16:03 Eyes: Negative for injury, pain, redness, and discharge, ENT: Negative for injury, pain, and discharge, Neck: Negative for injury, pain, and swelling, Cardiovascular: Negative for chest pain, palpitations, and edema, Respiratory: Negative for shortness of breath, cough, wheezing, and pleuritic chest pain, Abdomen/GI: Negative for abdominal pain, nausea, vomiting, diarrhea, and constipation, Back: Negative for injury and pain. 16:03 MS/extremity: Positive for laceration, swelling, of the palmar aspect of distal phalanx of left index finger. Exam: 16:05 Constitutional: This is a well developed, well nourished patient who is awake, alert, la1 and in no acute distress. Eyes: Pupils equal round and reactive to light, extra-ocular motions intact. ENT: Mucous membranes moist. Neck: No Meningismus. Cardiovascular: Regular rate and rhythm with a normal S1 and S2. Respiratory: Lungs have equal breath sounds bilaterally, clear to auscultation Back: No spinal tenderness. No costovertebral tenderness. Full range of motion. 16:05 Skin: injury, laceration(s), the wound is approximately 1.5 cm(s). Vital Signs: 15:59 BP 100 / 64; Pulse 85; Resp 18; Temp 97.8; Pulse Ox 95% on R/A; Weight 117.93 kg; em Height 5 ft. 11 in. (180.34 cm); Pain 2/10; 15:59 Body Mass Index 36.26 (117.93 kg, 180.34 cm) em Procedures: 16:28 Performed wound irrigation of palmar aspect of left distal finger performed, pt la1 tolerated well, wound is very superficial and well approximated no need to suture or external closure, will have pt FU outpatient. MDM: 15:[address] [facility] 16:30 Data reviewed: vital signs, nurses notes, radiologic studies, I have discussed the la1 patient's presentation/case with the attending Emergency Department Physician; and as a result, I will discharge patient. Data interpreted: Pulse oximetry: on room air is 96 %. Interpretation: normal. Test interpretation: by ED physician or midlevel provider: plain radiologic studies, no obvious distal phalanx fracture. Counseling: I had a detailed discussion with the patient and/or guardian regarding: the historical points, exam findings, and any diagnostic results supporting the discharge/admit diagnosis, radiology results, the need for outpatient follow up, a hand specialist, to return to the emergency department if symptoms worsen or persist or if there are any questions or concerns that arise at home. 15:58 Order name: Hand Left 3 View XRAY; Complete Time: 16:39 la1 16:33 Order name: Wound dressing; Complete Time: 16:52 la1 Administered Medications: 16:23 Drug: Ibuprofen 800 mg Route: PO; em 16:51 Follow up: Response: No adverse reaction em 16:23 Drug: Tetanus-Diphtheria Toxoid Adult 0.5 ml {Hog Driver: Catapulter. Exp: em 10/28/2020. Lot #: [id number]. } Route: IM; Site: right deltoid; 16:51 Follow up: Response: No adverse reaction em Disposition: 07/23/19 16:32 Discharged to Home. Impression: Laceration without foreign body of left hand. - Condition is Stable. - Discharge Instructions: Laceration Care, Adult, Nonsutured Laceration Care. - Medication Reconciliation Form, Thank You Letter form. - Follow up: Private Physician; When: 2 - 3 days; Reason: Recheck today's complaints, Re-evaluation by your physician. Follow up: Patrick Benjamin MD; When: As needed. - Problem is new. - Symptoms have improved. Addendum: 07/24/2019 18:02 Co-signature as Attending Physician, Huy Olson MD I agree with the assessment and c [place] plan of care. Signatures: Dispatcher [employer] Huy Infante MD MD cha Munoz, Edgar, RN RN em Betito Masterson, MACHINE SET UP OPERATOR-C MACHINE SET UP OPERATOR-Cla1 Corrections: (The following items were deleted from the chart) 17:03 16:32 07/23/2019 16:32 Discharged to Home. Impression: Laceration without foreign body em of left hand. Condition is Stable. Forms are Medication Reconciliation Form, Thank You Letter, Antibiotic Education, Prescription Opioid Use. Follow up: Private Physician; When: 2 - 3 days; Reason: Recheck today's complaints, Re-evaluation by your physician. Follow up: Partick Benjamin; When: As needed. Problem is new. Symptoms have improved. la1
--- NOTE | 2019-07-23 16:35 | RAD REPORT ---
EXAM DESCRIPTION: RAD - Hand Left 3 View - 07/23/2019 4:28 pm CLINICAL HISTORY: PAIN COMPARISON: No comparisons FINDINGS: No fracture or dislocation is evident.
[2019-07-23 17:19] VITALS: BP 100/64; TEMP 97.8; O2SAT 95
== END 2019-07-23 17:03 | disposition home or self-care (01) ==
LOC: ER 15:31
DX: S61.412A Laceration without foreign body of left hand, initial encounter (principal); W23.0XXA Caught, crushed, jammed, or pinched between moving objects, initial encounter; Y93.89 Activity, other specified; Y92.9 Unspecified place or not applicable; Z23 Encounter for immunization
CPT/HCPCS: 90471; 90714; 99283

== ENCOUNTER 2021-12-25 01:01 | Observation (INO) | payer BC ==
--- OUTSIDE RECORDS SUMMARY | 2021-12-25 01:05 | XMS REPORT | Continuity of Care Document ---
:1970 Author Organization [facility] t Address [address] [place] [address] [address] [place] [address] Care Team Providers Name Role Phone CLAUDIA ARVIZU Primary Care Physician Unavailable Claudia Arvizu Attending Clinician Unavailable Vaccine, Ang Db [facility] Attending Clinician Unavailable Ebjeanie PROCESS AUTOMATION ENGINEERImtiaz Attending Clinician Meg Wells Attending Clinician Rosio Lema Attending Clinician ROSIO TONG Attending Clinician Unavailable Doctor Unassigned, [place] Attending Clinician Unavailable KATIUSKA QUIGLEY Attending Clinician Unavailable EMMA WALDROP Attending Clinician Unavailable Emma Guerrero Attending Clinician EMMA WALDROP Admitting Clinician Unavailable Payers Payer Name Policy Type Policy Number Effective Date Expiration Date S ource Problems Condition Condition Condition Status Onset Resolution Last Treating Co mments Source Name Details Category Date Date Treatment Clinician Date Left flank Left flank Disease Active U nivers pain pain 4-05 ity of 00:00: [place] [facility] Family Family Disease Active Univers history of history of 4-05 [place] y of nephrolith [place]rol[place] [facility] Allergies, Adverse Reactions, Alerts Allergy Allergy Status Severity Reaction(s) Onset Inactive Treating Comm ents Source Name Type Date Date Clinician PROCHLOR DRUG Active Unknown-Cmnt Un kleber PERAZINE INGREDI - ity of 00:00: [place] 00 Medical Branch Prochlor Propensi Active Unknown - Uni vers perazine ty to See comments 10-30 it y of adverse 00:00: [place] reaction 00 Medical s Branch Compazin Adverse Active Info Not Commo n e Reaction Available Spiri t - [facility] Social History Social Habit Start Date Stop Date Quantity Comments Source Exposure to 2021-11-02 2021-11-12 Not sure [facility] SARS-CoV-2 00:00:00 16:06:00 Medical Branch (event) Tobacco use and 2020-10-30 2020-10-30 Current user [facility] [place] exposure 00:00:00 00:00:00 Medical Branch Sex [birth year] [facility] [place] 00:00:00 00:00:00 Medical Branch Smoking Status Start Date Stop Date Source Never smoker [facility] Medications Ordered Filled Start Stop Current Ordering Indication Dosage Frequency Signature Comments Components Source Medication Medication Date Date Medication? Clinician (SIG) Name Name mupirocin 2 Yes [id number] Apply to Univers % ointment 11-12 area(s) 3 ity of 00:00: (three) [place] 00 times Medical daily. Branch sulfamethox 2021- Yes [id number] 1{tbl} Take 1 Univers azole-trime 11-12- tablet by it oprim 00:00: 04:59 mouth 2 [place] (BACTRIM 00 :00 (two) Medical DS) 800-160 times Branch mg per daily for tablet 7 days. PRALUENT Yes INJECT Univ ers PEN 75 3-16 DIRECTED ity of mg/mL PnIj 00:00: [place] THE [place] 00 SKIN EVERY Medical 2 WEEKS Branch PRALUENT Yes INJECT Univ ers PEN 75 3-16 DIRECTED ity of mg/mL PnIj 00:00: [place] SKIN EVERY Medical 2 WEEKS Branch PRALUENT Yes INJECT Univ ers PEN 75 3-16 DIRECTED ity of mg/mL PnIj 00:00: [place] SKIN EVERY Medical 2 WEEKS Branch PRALUENT 2021-0 Yes INJECT Univ ers PEN 75 3-16 DIRECTED ity of mg/mL PnIj 00:00: [place] SKIN EVERY Medical 2 WEEKS Branch PRALUENT 2021-0 Yes INJECT Univ ers PEN 75 3-16 DIRECTED ity of mg/mL PnIj 00:00: [place] SKIN EVERY Medical 2 WEEKS Branch PRALUENT 2021-0 Yes INJECT Univ ers PEN 75 3-16 DIRECTED ity of mg/mL PnIj 00:00: [place] SKIN EVERY Medical 2 WEEKS Branch clopidogreL 2020-0 Yes Univer s 75 mg 6-07 ity of tablet 00:00: [place] [facility] lisinopriL 2020-0 Yes Univers 2.5 mg 6-07 ity of tablet 00:00: [place] [facility] metoprolol 2020-0 Yes Univers succinate 6-07 ity of XL 25 mg 24 00:00: [place] hr tablet 00 Medical Branch nitroglycer 2020-0 Yes Univer s in 0.4 mg 6-07 ity of sublingual 00:00: [place] tablet 00 Medical Branch clopidogreL 2020-0 Yes Univer s 75 mg 6-07 ity of tablet 00:00: [place] 00 Medical Branch lisinopriL 2020-0 Yes Univers 2.5 mg 6-07 ity of tablet 00:00: [place] [facility] metoprolol 2020-0 Yes Univers succinate 6-07 ity of XL 25 mg 24 00:00: [place] hr tablet 00 Medical Branch nitroglycer 2020-0 Yes Univer s in 0.4 mg 6-07 ity of sublingual 00:00: [place] tablet 00 Medical Branch clopidogreL 2020-0 Yes Univer s 75 mg 6-07 ity of tablet 00:00: [place] 00 Medical Branch lisinopriL 2020-0 Yes Univers 2.5 mg 6-07 ity of tablet 00:00: [place] 00 Medical Branch metoprolol 2020-0 Yes Univers succinate 6-07 ity of XL 25 mg 24 00:00: [place] hr tablet 00 Medical Branch nitroglycer 2020-0 Yes Univer s in 0.4 mg 6-07 ity of sublingual 00:00: [place] tablet 00 Medical Branch clopidogreL 2020-0 Yes Univer s 75 mg 6-07 ity of tablet 00:00: [place] 00 Medical Branch lisinopriL 2020-0 Yes Univers 2.5 mg 6-07 ity of tablet 00:00: [place] 00 Medical Branch metoprolol 2020-0 Yes Univers succinate 6-07 ity of XL 25 mg 24 00:00: [place] hr tablet 00 Medical Branch nitroglycer 2020-0 Yes Univer s in 0.4 mg 6-07 ity of sublingual 00:00: [place] tablet 00 Medical Branch clopidogreL 2020-0 Yes Univer s 75 mg 6-07 ity of tablet 00:00: [place] 00 Medical Branch lisinopriL 2020-0 Yes Univers 2.5 mg 6-07 ity of tablet 00:00: [place] 00 Medical Branch metoprolol 2020-0 Yes Univers succinate 6-07 ity of XL 25 mg 24 00:00: [place] hr tablet 00 Medical Branch nitroglycer 2020-0 Yes Univer s in 0.4 mg 6-07 ity of sublingual 00:00: [place] tablet 00 Medical Branch clopidogreL 2020-0 Yes Univer s 75 mg 6-07 ity of tablet 00:00: [place] 00 Medical Branch lisinopriL 2020-0 Yes Univers 2.5 mg 6-07 ity of tablet 00:00: [place] 00 Medical Branch metoprolol 2020-0 Yes Univers succinate 6-07 ity of XL 25 mg 24 00:00: [place] hr tablet 00 Medical Branch nitroglycer 2020-0 Yes Univer s in 0.4 mg 6-07 ity of sublingual 00:00: [place] tablet 00 Medical Branch methocarbam 2020-0 Yes TAKE 1 Univ ers oL 750 mg 6-01 TABLET BY ity o f tablet 00:00: MOUTH [place] 00 EVERY 6 Medical HOURS FOR Branch 15 DAYS NEEDED methocarbam 2020-0 Yes TAKE 1 Univ ers oL 750 mg 6-01 TABLET BY ity o f tablet 00:00: MOUTH [place] 00 EVERY 6 Medical HOURS FOR Branch 15 DAYS NEEDED methocarbam 2020-0 Yes TAKE 1 Univ ers oL 750 mg 6-01 TABLET BY ity o f tablet 00:00: MOUTH [place] 00 EVERY 6 Medical HOURS FOR Branch 15 DAYS NEEDED methocarbam 2020-0 Yes TAKE 1 Univ ers oL 750 mg 6-01 TABLET BY ity o f tablet 00:00: MOUTH [place] 00 EVERY 6 Medical HOURS FOR Branch 15 DAYS NEEDED methocarbam 0 Yes TAKE 1 Univ ers oL 750 mg 10-23 TABLET BY ity o f tablet 00:00: MOUTH [place] EVERY 6 Medical HOURS FOR Branch 15 DAYS NEEDED methocarbam 2020-0 Yes TAKE 1 Univ ers oL 750 mg 6- TABLET BY ity o f tablet 00:00: MOUTH [place] EVERY 6 Medical HOURS FOR Branch 15 DAYS NEEDED predniSONE 0 2- No 20mg Take 20 mg Univers 20 mg 10-2305 by mouth ity of tablet 00:00: 00:00 daily. [place] 00 : Medical Branch aspirin 81 2020-0 Yes 81mg Take 81 mg U nivers mg EC 5-27 by mouth ity of tablet 00:00: daily. [place] [facility] Branch aspirin 81 2020-0 Yes 81mg Take 81 mg U nivers mg EC 5-27 by mouth ity of tablet 00:00: daily. [place] [facility] Branch aspirin 81 2020-0 Yes 81mg Take 81 mg U nivers mg EC 5-27 by mouth ity of tablet 00:00: daily. [place] [facility] Branch aspirin 81 2020-0 Yes 81mg Take 81 mg U nivers mg EC 5-27 by mouth ity of tablet 00:00: daily. [place] [facility] Branch aspirin 81 2020-0 Yes 81mg Take 81 mg U nivers mg EC 5-27 by mouth ity of tablet 00:00: daily. [place] [facility] Branch aspirin 81 2020-0 Yes 81mg Take 81 mg U nivers mg EC 5-27 by mouth ity of tablet 00:00: daily. [facility] Branch atorvastati 0 Yes 80mg Take 80 mg Univers n 80 mg 5-20 by mouth ity of tablet 00:00: daily. [facility] Branch atorvastati 2020-0 Yes 80mg Take 80 mg Univers n 80 mg 5-20 by mouth ity of tablet 00:00: daily. [facility] Branch atorvastati 2020-0 Yes 80mg Take 80 mg Univers n 80 mg 5-20 by mouth ity of tablet 00:00: daily. [place] [facility] Branch atorvastati 0 Yes 80mg Take 80 mg Univers n 80 mg 5-20 by mouth ity of tablet 00:00: daily. Medical Branch atorvastati Yes 80mg Take 80 mg Univers n 80 mg 5-20 by mouth ity of tablet 00:00: daily. [place] [facility] Branch atorvastati Yes 80mg Take 80 mg Univers n 80 mg 5-20 by mouth ity of tablet 00:00: daily. [place] [facility] Fluticasone Fluticasone 2019-0 Yes Claudia 1 spray in Common Propionate Propionate 3-07 Ferguson each Sp maria del carmen 00:00: nostril - [facility] 00 [facility] Lisinopril Lisinopril Yes Claudia not Co mmon Ferguson defined [facility] Atorvastati Atorvastati Yes Claudia not Common n Calcium n Calcium Ferguson defined S pirit [facility] Clopidogrel Clopidogrel Yes Claudia 1 tablet Common Bisulfate Bisulfate Ferguson Spir it [facility] Aspirin Aspirin Yes Claudia 1 tablet Comm on Adult Low Adult Low Ferguson Spir it Strength Strength [facility] Nitroglycer Nitroglycer Yes Claudia as Common in in Ferguson directed [facility] Metoprolol Metoprolol Yes Claudia 1 tablet Common Succinate Succinate Ferguson Spir it ER ER [facility] Fish Oil Fish Oil Yes Claudia 1 capsule C ommon Ferguson [facility] Immunizations Ordered Filled Immunization Date Status Comments [facility] e Immunization Name Name SARS-COV-2 COVID-19 2021-11-12 Completed Unive rsity of PFIZER REE-SUCROSE 00:00:00 [facility] (MODI TOP) [place] SARS-COV-2 COVID-19 2021-05-11 Completed Unive rsity of PFIZER VACCINE 00:00:00 [facility] SARS-COV-2 COVID-19 2021-05-11 Completed Unive rsity of PFIZER VACCINE 00:00:00 [facility] SARS-COV-2 COVID-19 2021-05-11 Completed Unive rsity of PFIZER VACCINE 00:00:00 [facility] SARS-COV-2 COVID-19 2021-05-11 Completed Unive rsity of PFIZER VACCINE 00:00:00 [facility] SARS-COV-2 COVID-19 2021-05-11 Completed Unive rsity of PFIZER VACCINE 00:00:00 [facility] SARS-COV-2 COVID-19 2021-05-11 Completed Unive rsity of PFIZER VACCINE 00:00:00 [facility] SARS-COV-2 COVID-19 2020-08-25 Completed Unive rsity of PFIZER VACCINE 00:00:00 [facility] SARS-COV-2 COVID-19 2020-08-25 Completed Unive rsity of PFIZER VACCINE 00:00:00 [facility] Branch SARS-COV-2 COVID-19 2020-08-25 Completed Unive rsity of PFIZER VACCINE 00:00:00 [facility] SARS-COV-2 COVID-19 2020-08-25 Completed Unive rsity of PFIZER VACCINE 00:00:00 [facility] Branch SARS-COV-2 COVID-19 2020-08-25 Completed Unive rsity of PFIZER VACCINE 00:00:00 [facility] SARS-COV-2 COVID-19 2020-08-25 Completed Unive rsity of PFIZER VACCINE 00:00:00 [facility] SARS-COV-2 COVID-19 2020-08-04 Completed Unive rsity of PFIZER VACCINE 00:00:00 [facility] SARS-COV-2 COVID-19 2020-08-04 Completed Unive rsity of PFIZER VACCINE 00:00:00 [facility] SARS-COV-2 COVID-19 2020-08-04 Completed Unive rsity of PFIZER VACCINE 00:00:00 [facility] SARS-COV-2 COVID-19 2020-08-04 Completed Unive rsity of PFIZER VACCINE 00:00:00 [facility] SARS-COV-2 COVID-19 2020-08-04 Completed Unive rsity of PFIZER VACCINE 00:00:00 [facility] SARS-COV-2 COVID-19 2020-08-04 Completed Unive rsity of PFIZER VACCINE 00:00:00 [facility] Vital Signs Vital Name Observation Time Observation Value Comments Source Systolic blood 2021-11-12 21:14:00 117 mm[Hg] Univer sity of pressure [facility] Diastolic blood 2021-11-12 21:14:00 76 mm[Hg] Unive rsity of pressure [facility] Heart rate 2021-11-12 21:14:00 71 /min [facility] Body temperature 2021-11-12 21:14:[address] [facility] Respiratory rate 2021-11-12 21:14:00 16 /min [facility] Body height 2021-11-12 21:14:00 180.3 cm [facility] ty [facility] [place] [facility] [place] Body weight 2021-11-12 21:14:00 126.1 kg [facility] ty [facility] [place] [facility] [place] BMI 2021-11-12 21:14:00 38.77 kg/m2 Universi ty of [place] [facility] Oxygen saturation in 2021-11-12 21:14:00 96 /min [facility] Arterial blood by [facility] Pulse oximetry Branch Systolic blood 2021-08-27 13:18:00 130 mm[Hg] Univer sity of pressure [facility] Diastolic blood 2021-08-27 13:18:00 81 mm[Hg] Unive [facility] Heart rate 2021-08-27 13:18:00 77 /min Universi ty of [place] [facility] Body temperature 2021-08-27 13:18:00 36.72 [facility] height 2021-08-27 13:18:00 180.3 cm Universi ty of [place] [facility] Body weight 2021-08-27 13:18:00 122.97 kg Universi ty of [place] [facility] BMI 2021-08-27 13:18:00 37.81 kg/m2 Universi ty [facility] [place] [facility] Procedures Procedure Date / Time Performed Performing Clinician Sourc e SARS-COV-2 COVID-19 2021-11-12 21:40:35 [facility] Un[facility]igned, [facility] [address] [place] [address] YRS+,0.3ML,IM (PFIZER - MODI [facility]) ASSIGNMENT OF BENEFITS 2021-11-12 21:07:27 Doctor Unassigned, No [facility] CT ABDOMEN PELVIS WO 2021-09-02 13:51:17 [facility] ASSIGNMENT OF BENEFITS 2021-09-02 13:27:14 Doctor Unassigned, No [facility] Encounters Start End Encounter Admission Attending Care Care Encounter Source Date/Time Date/Time Type Type Clinicians Facility Department ID 2021-10-03 Outpatient Ferguson, STLMLC [facility] Common 15:49:00 Claudia [id number] [facility] 2021-06-19 Outpatient Ferguson, STIRINEOLC [facility] Common 14:10:42 Claudia [id number] [facility] 2021-06-19 Outpatient Stas, STIRINEOLC [facility] Common 11:06:05 Claudia [id number] [facility] 2021-11-12 2021-11-12 Imm/Inj Vaccine, Ang Db [facility] [id number] Univers 18:00:00 18:10:00 [facility] [id number] ity of Meg Regan [id number] [place] CHASITY?BLEA [id number] [address] MEDICAL OFFICE [facility] 2021-11-12 2021-11-12 Outpatient R [facility] [id number] Univers 18:00:00 18:00:00 [id number] ity of [place] [facility] 2021-11-12 2021-11-12 Urgent Rosio Tong [facility] [id number] Univers 16:20:00 16:40:00 Care Imtiaz Josue [facility] [id number] ity [place] [id number] [place] CHAS[place]?BLEA [id number] [address] MEDICAL OFFICE [facility] 2021-11-12 2021-11-12 [facility] [id number] Univers 16:20:00 16:29:05 ROSIO ity of [place] [facility] 2021-11-12 2021-11-12 Orders Doctor HARRISON [id number] Univers 00:00:00 00:00:00 Only Unassigned, KALPANA [id number] [facility] [id number] [place] [id number] [address] 2021-10-07 2021-10-07 [facility] [id number] Common 00:00:00 00:00:00 [facility] 2021-09-16 2021-09-16 Outpatient R [facility] [id number] Univers 16:30:00 16:30:00 KATIUSKA [id number] ity [facility] [place] [facility] 2021-09-02 2021-09-02 [facility] [id number] Univers 08:31:13 23:59:00 EMMA itkerri [facility] [place] [facility] 2021-09-02 2021-09-02 [facility] [id number] Univers 08:30:00 23:59:00 Encounter Emma Alvares [place] [id number] ity of [id number] [place] [id number] [facility] 801 Branch 2021-09-02 2021-09-02 Orders Doctor HUNTER [id number] Univers 00:00:00 00:00:00 Only Unassigned, KALPANA [id number] ity of [place] [facility] [id number] [place] [id number] [facility] 009 Branch 2021-08-27 2021-08-27 [facility] [id number] Univers 08:00:00 08:30:00 Visit Emma Alvares [facility] [id number] ity of [facility] [id number] [place] [id number] [facility] 204 Branch 2021-08-27 2021-08-27 [facility] [id number] Univers 08:00:00 08:00:00 EMMA kerri [facility] [place] [facility] 2021-08-20 2021-08-20 ambulatory STLMLC STLMLC [id number] Common 00:00:00 00:00:00 [facility] 2021-04-01 2021-04-01 ambulatory STLMLC STLMLC [id number] Common 00:00:00 00:00:00 [facility] 2020-11-15 2020-11-15 Outpatient STLMLC STLMLC [id number] Common 00:00:00 00:00:00 [facility] 2020-10-23 2020-10-23 Outpatient STLMLC STLMLC [id number] Common 00:00:00 00:00:00 [facility] 2020-06-13 2020-06-13 Outpatient STLMLC STLMLC [id number] Common 00:00:00 00:00:00 [facility] 2020-01-09 2020-01-09 [facility] [id number] Common 14:20:00 14:20:[address] [facility] [address] [facility] 2019-12-27 2019-12-27 Outpatient [facility] [id number] Common 13:00:00 13:00:[address] [facility] 2019-09-28 2019-09-28 Outpatient [facility] [id number] Common 16:00:00 16:00:[address] [facility] 2019-08-25 2019-08-25 Outpatient [facility] [id number] Common 13:20:00 13:20:[address] [facility] 2019-03-28 2019-03-28 Outpatient [facility] [id number] Common 09:40:00 09:40:[address] [facility] 2019-02-11 2019-02-11 Out[facility] [id number] Common 08:00:00 08:00:[address] [facility] 2018 2018 Outpatient E [facility] [id number] [facility] 12:22:00 12:22:00 2018-11-19 2018-11-19 Out[facility] [id number] Common 09:00:00 09:00:00 [facility] 2018-10-04 2018-10-04 Out[facility] [id number] Common 09:54:00 09:54:[address] [facility] 2018-09-27 2018-09-27 Outpatient [facility] [id number] Common 10:45:00 10:45:[address] [facility] 2018-08-11 2018-08-11 Outpatient [facility] [id number] Common 14:30:00 14:30:[address] [facility] 2018-07-29 2018-07-29 Out[facility] [id number] Common 10:45:00 10:45:[address] [facility] 2018-05-17 2018-05-17 Outpatient [facility] [id number] Common 09:30:00 09:30:[address] [facility] 2018-05-10 2018-05-10 Outpatient [facility] [id number] Common 09:54:00 09:54:[address] [facility] 2018-03-08 2018-03-08 Outpatient [facility] [id number] Common 16:06:00 16:06:[address] [facility] 2018-03-03 2018-03-03 Outpatient [facility] [id number] Common 10:15:00 10:15:[address] [facility] 2018-01-21 2018-01-21 Outpatient [facility] [id number] Common 16:00:00 16:00:[address] [facility] 2017-10-22 2017-10-22 Outpatient [facility] [id number] Common 08:30:00 08:30:[address] [facility] Results This patient has no known results.
[2021-12-25] MEDS ORDERED: ASPIRIN 81 MG CHEWABLE TABLET ONE (01:37)
[2021-12-25 02:14] LABS: Absolute Lymphocytes (CBC) 2.5 K/uL (0.7-4.9); Hematocrit 42.1 % (39.6-49.0); Lymphocytes % 40.6 % (15.3-44.8); MCV 88.7 fL (80-100); MPV 8.5 fL (7.6-11.3); RBC Red Blood Cell Count 4.74 M/uL (4.33-5.43)
[2021-12-25 02:23] LABS: Potassium 3.9 mmol/L (3.5-5.1); Troponin High Sensitivity 8.6 pg/mL (<58.9)
[2021-12-25 02:25] LABS: SARS-CoV-2 Antigen Rapid Res Negative (Negative)
--- NOTE | 2021-12-25 03:14 | P.HP ---
Certification for Inpatient Patient admitted to: Observation With expected LOS: <2 Midnights Patient will require the following post-hospital care: None Practitioner: I am a practitioner with admitting privileges, knowledge of patient current condition, hospital course, and medical plan of care. Services: Services provided to patient in accordance with Admission requirements found in Title 42 Section 412.3 of the Code of Federal Regulations <Betito Masterson - Last Filed: 12/25/21 03:09> Patient History Date of Service: 12/25/21 Reason for admission: ACS rule out History of Present Illness: 51-year-old male with history of CAD, hyperlipidemia presents the emergency department for back pain that radiated down his left arm. He is concerned because his previous SC in 2018 had similar paresthesia/pain in his left arm, he took a nitroglycerin at home which she states did seem to resolve or at least partially relieve his symptoms. His symptoms cannot be reproduced with range of motion of his head/neck/shoulders or arm. He was evaluated in the emergency department his EKG was without ST elevations his initial troponin is negative and his other labs were unremarkable. Given patient's significant cardiac history ED provider wishes to admit under observation for ACS rule out. - Past Medical/Surgical History Diabetic: No -: CAD -: SC -: dyslipidemia -: ANNABELLA -: LAD stent Psychosocial/ Personal History: Patient is employed at [employer], lives at home with his and children - Social History Smoking Status: Former smoker Alcohol use: Yes CD- Drugs: No Caffeine use: Yes Place of Residence: Home <Betito Masterson - Last Filed: 12/25/21 03:09> Date of Service: 12/25/21 <Keith Pack - Last Filed: 12/25/21 14:49> Allergies prochlorperazine [From Compazine] Allergy (Verified 05/10/18 02:53) Hives Home Medications: Aspirin Chewable [Aspirin Chewable*] 81 mg PO DAILY tab.chew 05/12/18 Atorvastatin Calcium [Lipitor] 80 mg PO DAILY #30 tab 05/12/18 Clopidogrel Bisulfate [Plavix*] 75 mg PO DAILY #60 tablet 05/12/18 Docusate [Colace Cap*] 100 mg PO BID cap 05/12/18 Lisinopril [Zestril] 2.5 mg PO DAILY #30 tablet 05/12/18 Metoprolol Succinate [Toprol Xl*] 25 mg PO BID #60 tab 05/12/18 Nitroglycerin [Nitrostat*] 0 mg SL UD PRN #15 tab 05/12/18 Review of Systems 10-point ROS is otherwise unremarkable Musculoskeletal: Back Pain (Radiating to left arm) <Betito Masterson - Last Filed: 12/25/21 03:09> Physical Examination - Physical Exam General: Alert, In no apparent distress, Oriented x3 HEENT: Atraumatic, PERRLA, Mucous membr. moist/pink, EOMI, Sclerae nonicteric Neck: Supple, 2+ carotid pulse no bruit, No LAD, Without JVD or thyroid ab normality Respiratory: Clear to auscultation bilaterally, Normal air movement Cardiovascular: Regular rate/rhythm, Normal S1 S2 Gastrointestinal: Normal bowel sounds, No tenderness Musculoskeletal: No tenderness Integumentary: No rashes Neurological: Normal gait, Normal speech, Normal strength at 5/5 x4 extr, Normal tone, Normal affect Lymphatics: No axilla or inguinal lymphadenopathy - Studies Laboratory Data (last 24 hrs) 12/25/21 01:49: PT 11.0, INR 1.00 12/25/21 01:49: WBC 6.2, Hgb 14.6, Hct 42.1, Plt Count 181 12/25/21 01:49: Sodium 139, Potassium 3.9, BUN 7, Creatinine 1.01, Glucose 105 <Betito Masterson - Last Filed: 12/25/21 03:09> - Studies Laboratory Data (last 24 hrs) 12/25/21 01:49: PT 11.0, INR 1.00 12/25/21 01:49: WBC 6.2, Hgb 14.6, Hct 42.1, Plt Count 181 12/25/21 01:49: Sodium 139, Potassium 3.9, BUN 7, Creatinine 1.01, Glucose 105 12/25/21 01:19: PT Cancelled, INR Cancelled 12/25/21 01:19: WBC Cancelled, Hgb Cancelled, Hct Cancelled, Plt Count Cancelled 12/25/21 01:19: Sodium Cancelled, Potassium Cancelled, BUN Cancelled, Creatinine Cancelled, Glucose Cancelled <Keith Pack - Last Filed: 12/25/21 14:49> Assessment and Plan - Plan Assessment: Back/left arm pain rule out ACShistory CAD Hyperlipidemia ANNABELLA Plan: Back/left arm pain rule out ACShistory CAD: Patient reports that during his previous SC he had similar symptoms with pain/paresthesias in his left upper extremity on the last time he was having pain in his chest rather than his back, pain is located just right of midline parascapular area with pain radiating to the left arm pain not reproducible with range of motion of head/neck/shoulder or palpation of this area. Initial troponin negative will trend troponins, monitor on telemetry and consult cardiology his last heart catheterization was in 2018 with stent placement he has not had a stress test in the last 2 years approximately. Appreciate further input from cardiology. Continue patients lisinopril, metoprolol, ASA, plavix. Hyperlipidemia: Continue atorvastatin ANNABELLA: is bringing CPAP machine from home. DVT PPX: Lovenox Code status:Full code Discharge Plan: Home Plan to discharge in: 24 Hours - Advance Directives Does patient have a Living Will: No Does patient have a Durable POA for Healthcare: Yes - Code Status/Comfort Care Code Status Assessed: Yes (Full code) Critical Care: No Time Spent Managing Pts Care (In Minutes): 70 <Betito Masterson - Last Filed: 12/25/21 03:09> Physician Review: Patient Assessed, Agree with Above Assessment and Plan Physician Review Additional Text: History is concerning for unstable angina. Discussed with Dr. Pruett. Plan for cardiac catheterization tomorrow morning. Keith Pack M.D. <Keith Pack - Last Filed: 12/25/21 14:49>
[2021-12-25 03:23] VITALS: BMI 38.3
[2021-12-25] MEDS ORDERED: ONDANSETRON 4 MG/2 ML VIAL IV PRN (03:47)
[2021-12-25] MEDS ORDERED: MORPHINE 2 MG/ML SYR IV PRN (03:47)
[2021-12-25 05:59] LABS: Troponin High Sensitivity 9.8 pg/mL (<58.9)
[2021-12-25] MEDS: METOPROLOL TAR 25 MG TAB PO SCH (06:00)
[2021-12-25] MEDS ORDERED: ACETAMINOPHEN 500 MG TAB ONE (06:29)
--- NOTE | 2021-12-25 07:20 | EKG ---
Test Date: 2021-12-25 Test Time: 01:30:33 Crisis Mental Health Therapist: PASCALE MEASUREMENT RESULTS: Intervals: Rate: 70 RI: 180 QRSD: 90 QT: 404 QTc: 436 [place]: P: 47 RI: 180 QRS: -3 T: 53 INTERPRETIVE STATEMENTS: Normal sinus rhythm Possible Anterior infarct, age undetermined Abnormal ECG Compared to ECG 05/12/2018 09:34:42 No significant changes Electronically Signed On 12-25-21 07:19:13 CDT by Mitch Pruett
[2021-12-25] MEDS: ASPIRIN EC 81 MG TAB PO SCH (09:00)
[2021-12-25] MEDS: lisinopriL 5 MG TAB PO SCH (09:00)
[2021-12-25] MEDS: CLOPIDOGREL 75 MG TABLET PO SCH (09:00)
[2021-12-25] MEDS ORDERED: ENOXAPARIN 40 MG/0.4 ML SQ SCH (09:00)
[2021-12-25] MEDS ORDERED: ENOXAPARIN 40 MG/0.4 ML SQ ONE (10:12)
[2021-12-25] MEDS ORDERED: CLOPIDOGREL 75 MG TABLET ONE (10:12)
[2021-12-25] MEDS ORDERED: METOPROLOL TAR 25 MG TAB ONE (10:12)
[2021-12-25] MEDS ORDERED: ASPIRIN EC 81 MG TAB PO ONE (10:12)
[2021-12-25] MEDS ORDERED: lisinopriL 5 MG TAB ONE (10:14)
--- NOTE | 2021-12-25 10:43 | ER ---
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 Coronavirus screen: At this time, the client does not indicate any symptoms associated with coronavirus-19. Ebola Screen: No symptoms or risks identified at this time. Initial Sepsis Screen: Does the patient meet any 2 criteria? No. Patient's initial sepsis screen is negative. Does the patient have a suspected source of infection? No. Patient's initial sepsis screen is negative. Risk Assessment: Do you want to hurt yourself or someone else? Patient reports no desire to harm self or others. Onset of symptoms was December 25, 2021. Transition of care: patient was not received from another setting of care. 01:23 Method Of Arrival: Ambulatory jb4 01:23 Acuity: ABDOUL 3 jb4 Historical: - Allergies: 01:25 Compazine; jb4 - Home Meds: 01:25 Metoprolol Tartrate Oral once daily [Active]; atorvastatin Oral once daily [Active]; jb4 aspirin 81 mg Oral TbEC 1 tab once daily [Active]; clopidogrel oral [Active]; - PMHx: 01:25 High Cholesterol; Myocardial infarction; jb4 - Immunization history:: Adult Immunizations up to date. - Social history:: Smoking status: Patient denies any tobacco usage or history of. Patient uses alcohol, occasionally. nicotine pouches. - Family history:: not pertinent. - Hospitalizations: : No recent hospitalization is reported. Screenin:57 Abuse screen: Denies threats or abuse. Nutritional screening: No deficits noted. jb4 Tuberculosis screening: No symptoms or risk factors identified. Fall Risk None identified. Assessment: 01:57 General: Appears in no apparent distress. comfortable, Behavior is calm, cooperative, jb4 appropriate for age. Pain: Complains of pain in back Pain radiates to left arm Pain currently is 1 out of 10 on a pain scale. Neuro: Level of Consciousness is awake, alert, obeys commands, Oriented to person, place, time, situation, Moves all extremities. Full function Gait is steady, Speech is normal, Facial symmetry appears normal, Pupils are PERRLA. Cardiovascular: Patient's skin is warm and dry. Respiratory: Airway is patent Respiratory effort is even, unlabored, Respiratory pattern is regular, symmetrical. Derm: Skin is intact, Skin is pink, warm \T\ dry. Musculoskeletal: Circulation, motion, and sensation intact. Range of motion: intact in all extremities. 02:39 Reassessment: Patient appears in no apparent distress at this time. Patient and/or jb4 family updated on plan of care and expected duration. Pain level reassessed. Patient is alert, oriented x 3, equal unlabored respirations, skin warm/dry/pink. Vital Signs: 01:23 BP 109 / 81; Pulse 71; Resp 16; Pulse Ox 97% on R/A; Weight 124.74 kg (R); Height 5 ft. jb4 11 in. (180.34 cm) (R); Pain 1; 02:39 BP 101 / 63; Pulse 64; Resp 14; Pulse Ox 97% on R/A; jb4 01:23 Body Mass Index 38.35 (124.74 kg, 180.34 cm) jb4 ED Course: 01:05 Patient arrived in ED. ja2 01:09 Armando Fox MD is Attending Physician. rn 01:24 Triage completed. jb4 01:25 Arm band placed on right wrist. jb4 01:37 Chest Single View In Process Unspecified. EDMS 01:53 Keith Pack MD is Hospitalizing Provider. rn 01:57 Dylan Donovan, RN is Primary Nurse. jb4 01:57 Patient has correct armband on for positive identification. Bed in low position. Call [facility] light in reach. Side rails up X 1. Client placed on continuous cardiac and pulse oximetry monitoring. NIBP monitoring applied. compliance monitor on. 01:57 Initial lab(s) drawn, by me, sent to lab. COVID swab sent to lab. Inserted saline lock: 4 18 gauge in right forearm, using aseptic technique. Blood collected. 07:45 Primary Nurse role handed off by Dylan Donovna, RN bd 09:16 Marychuy Zee RN is Primary Nurse. ph Administered Medications: 01:31 Drug: Aspirin Chewable Tablet 324 mg Route: PO; jb4 05:32 Not Given (Duplicate Order): Tylenol 500 mg PO once jb4 06:30 Drug: Tylenol 500 mg Route: PO; jb4 Medication: 01:57 VIS not applicable for this client. jb4 Outcome: 01:54 Decision to Hospitalize by Provider. rn 01:57 Admitted to ER Hold. Please see [facility] for further documentation. jb4 01:57 Condition: stable 01:57 Discharge instructions given to patient, Instructed on the need for admit, Demonstrated understanding of instructions. 15:28 Patient left the ED. ph Signatures: Dispatcher [employer] EDMS Sheila Butcher Roman, MD MD rn Hall, Patricia, RN RN ph Bryson, James, RN RN Sofiya Souza Corrections: (The following items were deleted from the chart) 01:25 01:25 PMHx: Hypertension; jb4 jb4
--- NOTE | 2021-12-25 10:43 | EDPHYS ---
Physician Documentation [facility] Name: Eb Alvarez Age: 51 yrs Sex: Male : 1970 Arrival Date: 12/25/2021 Time: 01:05 Bed 24 Private MD: ED Physician Armando Fox HPI: 12/25 01:48 This 51 yrs old Male presents to ER via Ambulatory with complaints of Back Pain, rn Numbness Of Arm. 01:48 The patient presents with pain that is acute, with no known mechanism of injury. The rn symptoms are located in the thoracic area. Onset: The symptoms/episode began/occurred 30 minute(s) ago. The pain radiates to the left arm. Associated signs and symptoms: Pertinent negatives: abdominal pain, fever, incontinence, urinary retention, vomiting, weakness. Modifying factors: The patient symptoms are alleviated by nitroglycerin, the patient symptoms are aggravated by nothing. Severity of symptoms: At their worst the symptoms were moderate, in the emergency department the symptoms have improved. The patient has experienced similar episodes in the past. The patient has not recently seen a physician. Pt reports mid-scapular pain, radiates to left arm with tingling, began 30 min prior to arrival, no neck pain, improved with nitro, similar episodes in past when had AMI with 5 stents total. Compliant with aspirin/plavix/metoprolol/statin. No cough or sob. . Historical: - Allergies: 01:25 Compazine; jb4 - Home Meds: 01:25 Metoprolol Tartrate Oral once daily [Active]; atorvastatin Oral once daily [Active]; jb4 aspirin 81 mg Oral TbEC 1 tab once daily [Active]; clopidogrel oral [Active]; - PMHx: 01:25 High Cholesterol; Myocardial infarction; jb4 - Immunization history:: Adult Immunizations up to date. - Social history:: Smoking status: Patient denies any tobacco usage or history of. Patient uses alcohol, occasionally. nicotine pouches. - Family history:: not pertinent. - Hospitalizations: : No recent hospitalization is reported. ROS: 01:48 Constitutional: Negative for fever, chills, and weight loss, Eyes: Negative for injury, rn pain, redness, and discharge, Neck: Negative for injury, pain, and swelling, Cardiovascular: Negative for chest pain, palpitations, and edema, Respiratory: Negative for shortness of breath, cough, wheezing, and pleuritic chest pain, Abdomen/GI: Negative for abdominal pain, nausea, vomiting, diarrhea, and constipation, Back: Negative for injury MS/Extremity: Negative for injury and deformity, Skin: Negative for injury, rash, and discoloration, Neuro: Negative for headache, weakness, and seizure. Exam: 01:48 Constitutional: This is a well developed, well nourished patient who is awake, alert, rn and in no acute distress. Head/Face: Normocephalic, atraumatic. Neck: Trachea midline, no masses palpated. Supple, full range of motion without nuchal rigidity, or vertebral point tenderness. No Meningismus. Cardiovascular: Regular rate and rhythm. No pulse deficits. Respiratory: No increased work of breathing, no retractions or nasal flaring. Abdomen/GI: Soft, non-tender Skin: Warm, dry MS/ Extremity: Pulses equal, no cyanosis. Neuro: Awake and alert, GCS 15 02:23 ECG was reviewed by the Attending Physician. rn Vital Signs: 01:23 BP 109 / 81; Pulse 71; Resp 16; Pulse Ox 97% on R/A; Weight 124.74 kg (R); Height 5 ft. jb4 11 in. (180.34 cm) (R); Pain 1/10; 02:39 BP 101 / 63; Pulse 64; Resp 14; Pulse Ox 97% on R/A; jb4 01:23 Body Mass Index 38.35 (124.74 kg, 180.34 cm) jb4 MDM: 01:09 Patient medically screened. rn 01:53 Differential diagnosis: AMI, NSTEMI, Angina, radiculopathy, CAD. Data reviewed: vital rn signs, nurses notes, EKG, and as a result, I will admit patient. Counseling: I had a detailed discussion with the patient and/or guardian regarding: the historical points, exam findings, and any diagnostic results supporting the discharge/admit diagnosis, lab results, the need for further work-up and treatment in the hospital. Admission orders: after a detailed discussion of the patient's condition and case, the admit orders are written by me. 12/25 01:19 Order name: Basic Metabolic Panel rn 12/25 01:19 Order name: CBC with Diff rn 12/25 01:19 Order name: NT PRO-BNP rn 12/25 01:19 Order name: PT-INR rn 12/25 01:19 Order name: Troponin HS rn 12/25 01:19 Order name: SARS-COV-2 Antigen Rapid rn 12/25 01:59 Order name: Basic Metabolic Panel; Complete Time: 02:26 EDMS 08 01:59 Order name: Troponin High Sensitivity; Complete Time: 02:26 EDMS 12/25 01:59 Order name: NT PRO-BNP; Complete Time: 02:26 EDMS 12/25 01:59 Order name: CBC with Automated Diff; Complete Time: 02:23 EDMS 12/25 01:59 Order name: Protime (+INR); Complete Time: 02:23 EDMS 12/25 02:00 Order name: SARS-COV-2 Antigen Rapid; Complete Time: 02:26 EDMS 12/25 05:59 Order name: Troponin High Sensitivity EDMS 12/25 05:59 Order name: Lipid Profile EDMS 12/25 01:19 Order name: XRAY Chest (1 view) rn 12/25 01:19 Order name: EKG; Complete Time: 08: rn 12/25 01:19 Order name: Cardiac monitoring; Complete Time: 01: rn 12/25 01:19 Order name: EKG - Nurse/Tech; Complete Time: : rn 12/25 01:19 Order name: IV Saline Lock; Complete Time: 01: rn 12/25 01:19 Order name: Labs collected and sent; Complete Time: 01: rn 12/25 01:19 Order name: O2 Per Protocol; Complete Time: 01: rn 12/25 01:19 Order name: O2 Sat Monitoring; Complete Time: : rn 12/25 01:23 Order name: Chest Single View EDMS 12/25 09:37 Order name: Troponin High Sensitivity EDMS EC:23 Rate is 70 beats/min. Rhythm is regular. QRS Howard is Normal. AR interval is normal. QRS rn interval is normal. QT interval is normal. No Q waves. T waves are Normal. No ST changes noted. Clinical impression: NSR w/ Non-specific ST/T Changes. Interpreted by me. Reviewed by me. Administered Medications: 01:31 Drug: Aspirin Chewable Tablet 324 mg Route: PO; jb4 05:32 Not Given (Duplicate Order): Tylenol 500 mg PO once jb4 06:30 Drug: Tylenol 500 mg Route: PO; jb4 Disposition Summary: 12/25/21 01:54 Hospitalization Ordered Hospitalization Status: Observation rn Provider: Keith Pack rn Condition: Stable rn Problem: new rn Symptoms: have improved rn Bed/Room Type: Standard rn Location: Telemetry/MedSurg (observation)(12/25/21 12:54) bd Room Assignment: 210(12/25/21 12:54) bd Diagnosis - Chest pain, unspecified rn - Atherosclerotic heart disease of [place] coronary artery with angina pectoris rn Forms: - Medication Reconciliation Form rn - SBAR form rn Signatures: Dispatcher [employer] EDSheila Durham Brenda RN RN Armando Ravi MD MD rn Attema, Lee, CLOTH DESIZING RANGE OPERATOR CHIEF-C CLOTH DESIZING RANGE OPERATOR CHIEF-Cla1 Dylan Donovan RN RN jb4 Corrections: (The following items were deleted from the chart) 01:25 01:25 PMHx: Hypertension; jb4 jb4 01:56 01:54 Telemetry/MedSurg (observation) rn april 01:56 01:54 rn april 12:54 01:56 [facility] ER HOLD bb bd 12:54 01:56 ERHOLD- bb bd
--- NOTE | 2021-12-25 14:03 | RAD REPORT ---
EXAM DESCRIPTION: RAD - Chest Single View - 12/25/2021 1:35 am CLINICAL HISTORY: 51 years Male chest pain COMPARISON: None FINDINGS: Lung volumes adequate. Cardiac silhouette is normal. No pneumothorax. No large pleural effusion. No focal consolidation. No acute bony finding. IMPRESSION: No acute cardiopulmonary findings. Electronically signed by: Misael Denson MD 12/25/2021 1:47 AM CDT Due to temporary technical issues with the PACS/Fluency reporting system, reports are being signed by the in house radiologists without review as a courtesy to insure prompt reporting. The interpreting radiologist is fully responsible for the content of the report.
--- NOTE | 2021-12-25 14:52 | ECHO ---
HEIGHT: 5 ft 11 in WEIGHT: 275 lb 0 oz DATE OF STUDY: 12/25/[address]: Mitch Pruett MD 2-DIMENSIONAL: YES M.MODE: YES DOPPLER: YES COLOR FLOW: YES TDS: NO PORTABLE: YES DEFINITY: NO BUBBLE STUDY: NO DIAGNOSIS: CHEST PAIN CARDIAC HISTORY: CATHERIZATION:YES SURGERY: NO PROSTHETIC VALVE: NO PACEMAKER: NO MEASUREMENTS (cm) DIASTOLIC (NORMALS) SYSTOLIC (NORMALS) IVSd 1.2 (0.6-1.2) LA Diam 3.3 (1.9-4.0) LVEF 54% LVIDd 3.5 (3.5-5.7) LVIDs 2.5 (2.0-3.5) %FS 27% LVPWd 1.2 (0.6-1.2) Ao Diam 3.0 (2.0-3.7) 2 DIMENSIONAL ASSESSMENT: RIGHT ATRIUM: NORMAL LEFT ATRIUM: NORMAL RIGHT VENTRICLE: NORMAL LEFT VENTRICLE: NORMAL TRICUSPID VALVE: NORMAL MITRAL VALVE: NORMAL PULMONIC VALVE: NORMAL AORTIC VALVE: NORMAL PERICARDIAL EFFUSION: NONE AORTIC ROOT: NORMAL LEFT VENTRICULAR WALL MOTION: NORMAL DOPPLER/COLOR FLOW: NORMAL COMMENTS: NORMAL 2D ECHOCARDIOGRAM WITH DOPPLER. NO WALL MOTION. NO EFFUSION. TECHNOLOGIST: Carlo REES
[2021-12-25] MEDS ORDERED: ACETAMINOPHEN 325 MG TABLET PO PRN (17:45)
[2021-12-25] MEDS ORDERED: ATORVASTATIN 40 MG TAB PO SCH (21:00)
[2021-12-26] MEDS: METOPROLOL TAR 25 MG TAB PO SCH (05:33)
[2021-12-26 05:49] LABS: Albumin 3.6 g/dL (3.4-5.0); Bilirubin Total 0.7 mg/dL (0.2-1.0); Potassium 3.7 mmol/L (3.5-5.1); Protein, Total 6.6 g/dL (6.4-8.2)
[2021-12-26] MEDS: CLOPIDOGREL 75 MG TABLET PO SCH (06:48)
[2021-12-26] MEDS: ASPIRIN EC 81 MG TAB PO SCH (06:48)
[2021-12-26] MEDS ORDERED: NA CHLORIDE 0.9% 500 ML ONE (07:09)
[2021-12-26] MEDS: lisinopriL 5 MG TAB PO SCH (08:46)
[2021-12-26] MEDS ORDERED: MIDAZOLAM HCL 2 MG/2 ML INJ ONE (08:51)
[2021-12-26] MEDS ORDERED: FENTANYL CITR 100 MCG/2 ML ONE (08:51)
[2021-12-26] MEDS ORDERED: ATROPINE SULF 1 MG/10 ML SYR IV ONE (08:52)
[2021-12-26] MEDS ORDERED: NA CHLORIDE 0.9% 0 ML IV ONE (08:52)
[2021-12-26] MEDS ORDERED: NITROGLYCERIN 100 MCG/ML SYR (for cath lab use only) IV ONE (08:52)
[2021-12-26] MEDS ORDERED: POTASSIUM CL SA 10 MEQ TAB PO ONE (09:00)
[2021-12-26] MEDS ORDERED: LIDOCAINE 1% MPF 5 ML VIAL ONE (09:37)
[2021-12-26 10:33] VITALS: O2SAT 97
[2021-12-26 12:53] VITALS: BP 109/58; TEMP 97
--- NOTE | 2021-12-26 13:21 | P.DS ---
Admission Date: 12/25/21 Discharge Date: 12/26/21 Disposition: ROUTINE DISCHARGE Discharge Condition: GOOD Reason for Admission: ACS rule out Consultations: 1. Cardiology Procedures: - 12/26/2021 - Left Heart Catheterization Hospital Course: DIAGNOSES: # Coronary Artery Disease complicated by prior Myocardial Infarction s/p PCI # Hypertension # Dyslipidemia # Obstructive Sleep Apnea HOSPITAL COURSE: Mr. Eb Alvarez is a pleasant 51 year old male with a past medical history significant for coronary artery disease complicated by prior [place] s/p PCI; hypertension; dyslipidemia, and obstructive sleep apnea who was admitted to the [facility] on 12/25/2021 for chest pain. Upon further evaluation, his vital signs were stable. EKG reportedly revealed normal sinus rhythm without STEMI criteria. Troponin trend was 8.6 -> 9.8 -> 8.1. Transthoracic echocardiogram revealed, "normal 2D echocardiogram with doppler. No wall motion. No effusion." Cardiology was consulted and Dr. Pruett evaluated him. Today, he underwent a left heart catheterization, and per discussion with Dr. Pruett, this revealed complete occlusion of his coronary stents with good collaterization of his coronary vessels. Dr. Pruett has cleared him for discharge with a follow-up appointment to evaluate him further for CABG. On 12/26/2021, he was seen on rounds and deemed medically stable for discharge. He was discharged with instructions to schedule follow-up appointments with his PCP in 3-5 days and with Cardiology in 5-7 days. He was advised to continue his home aspirin, atorvastatin, metoprolol, lisinopril, and clopidogrel. He and his (Mrs. Cooper) were given the opportunity to ask questions and reported no further questions. Furthermore, all questions were answered to the best of my ability. Today, I personally spent 35 minutes with him, of which greater than 50% of the time was spent in patient education, counseling, and coordination of care as described above. Vital Signs/Physical Exam: Temp Pulse Resp BP Pulse Ox 97.0 F 56 12 109/58 L 94 12/26/21 12:00 12/26/21 12:00 12/26/21 12:00 12/26/21 12:00 12/26/21 12:00 General: Alert, In no apparent distress, Oriented x3 HEENT: Atraumatic, Mucous membr. moist/pink, EOMI, Sclerae nonicteric Neck: Supple, JVD not distended Respiratory: Clear to auscultation bilaterally, Normal air movement Cardiovascular: No edema, Regular rate/rhythm, Normal S1 S2, No gallops, No rubs, No murmurs Gastrointestinal: Normal bowel sounds, Soft and benign, Non-distended, No tenderness, No rebound, No guarding Musculoskeletal: No clubbing, Other (Right femoral cath site is clean, dry, and intact) Integumentary: No rashes Neurological: Normal speech, Normal affect Laboratory Data at Discharge: WBC 6.2 K/uL (4.3-10.9) 12/25/21 01:49 Hgb 14.6 g/dL (13.6-17.9) 12/25/21 01:49 Hct 42.1 % (39.6-49.0) 12/25/21 01:49 Plt Count 181 K/uL (152-406) 12/25/21 01:49 PT 11.0 SECONDS (9.5-12.5) 12/25/21 01:49 INR 1.00 12/25/21 01:49 Sodium 140 mmol/L (136-145) 12/26/21 05:03 Potassium 3.7 mmol/L (3.5-5.1) 12/26/21 05:03 BUN 11 mg/dL (7-18) 12/26/21 05:03 Creatinine 0.80 mg/dL (0.55-1.3) 12/26/21 05:03 Glucose 98 mg/dL (74-106) 12/26/21 05:03 Total Bilirubin 0.7 mg/dL (0.2-1.0) 12/26/21 05:03 AST 23 U/L (15-37) 12/26/21 05:03 ALT 56 U/L (12-78) 12/26/21 05:03 Alkaline Phosphatase 59 U/L (45-117) 12/26/21 05:03 Triglycerides 162 mg/dL (<150) H 12/25/21 05:21 Cholesterol 115 mg/dL (<200) 12/25/21 05:21 HDL Cholesterol 36 mg/dL (40-60) L 12/25/21 05:21 Cholesterol/HDL Ratio 3.19 12/25/21 05:21 Home Medications: RX: Aspirin Chewable [Aspirin Chewable*] 81 mg PO DAILY tab.chew 05/12/18 RX: Clopidogrel Bisulfate [Plavix*] 75 mg PO DAILY #60 tablet 05/12/18 RX: Docusate [Colace Cap*] 100 mg PO BID cap 05/12/18 RX: Metoprolol Succinate [Toprol Xl*] 25 mg PO BID #60 tab 05/12/18 RX: Nitroglycerin [Nitrostat*] 0 mg SL UD PRN #15 tab 05/12/18 RX: Atorvastatin Calcium [Lipitor] 40 mg PO BEDTIME tab 12/26/21 RX: lisinopriL [Prinivil*] 5 mg PO DAILY tab 12/26/21 Physician Discharge Instructions: 1. Please schedule follow-up with your PCP (SHAKIRA Mcclelland) in 3-5 days 2. Please schedule follow-up with Cardiology (Dr. Pruett) in 5-7 days to discuss possible bypass surgery Diet: AHA Activity: No lifting more than 10 lbs (for 2-3 days) Followup: Mitch Pruett MD [ACTIVE - CAN ADMIT] - Claudia Mcclelland NP [Primary Care Provider] - Time spent managing pt's care (in minutes): 35
--- NOTE | 2021-12-26 22:12 | OP ---
Surgeon: Mitch Pruett MD Slate Mixer: Ms. Mona Good. After the Angio-Seal, the patient will be a bedrest for 2 hours. He will go home after that. I will discuss the case further with him and his and Dr. Pack. Indications: I was consulted by Dr. Pack for unstable angina. Procedure In Detail: He was brought to the laboratory animal care veterinarian today as an inpatient, prepped and draped in the routine sterile fashion, given Versed and fentanyl for sedation. A 6-[place] sheath introduced in th e right common femoral artery successfully using Seldinger technique and 10 cc of Xylocaine. Maria A catheter, left and right were used to cannulate the left main and right main respectively. The left main was normal. Circumflex was normal. The RCA was normal. He had 100% in-stent restenosis in th e proximal LAD through the first diagonal. There was a LENNY-1 flow in the diagonal and the LAD with collaterals to the LAD from the RCA and circumflex. The common femoral artery angiogram was normal. Angio-Seal was used to close the case. There were no complications. Blood Loss: 5 mL. Postoperative Diagnosis: Severe coronary artery disease. I think I will plan to start for now with medical therapy being conservative. If his symptoms persist, we will consider bypass surgery with KALEB PHELAN to the LAD down the road. Anesthesia: Total conscious sedation was 45 minutes. CRISTINA/TERESITA Voice ID: [id number] Report ID: [id number]
--- NOTE | 2021-12-27 14:12 | CON ---
Date of Consultation: 12/25/[address] Pack on 12/25/2021. Reason For Consultation: Acute coronary artery syndrome. History Of Present Illness: Mr. Alvarez is 51, has a history of CAD. Last angioplasty and stent were in 2018. He had an in-stent restenosis of the LAD that was restented by Dr. Washburn. He has a histor y of sleep apnea and dyslipidemia. Came in with substernal chest pain, radiating to the back and lef t shoulder with some diaphoresis, shortness of breath, lasted 15 minutes. No PND, orthopnea, pedal e yesenia, palpitation, or syncope. Denied any fever or chills. AR has been ruled out. Allergies: COMPAZINE. Medications: Include aspirin, Plavix, metoprolol, and lisinopril. Review of Systems: Negative. Social History: Negative. Family History: Positive. Physical Examination: Vital Signs: Stable, afebrile. HEENT: Negative. Neck: Supple without any lymphadenopathy, JVD, thyromegaly, or bruit. Chest: Clear to auscultation and percussion. Cardiac: Revealed a regular rhythm and rate. No murmurs, gallops, or rubs. Abdomen: Benign. Extremities: Revealed no clubbing, cyanosis, or edema. Diagnostic Data: Fairly unremarkable. His EKG was nonspecific. His troponin was negative. Creatin ine was normal. Impression And Plan: This is a patient with known coronary artery disease, status post in-stent rest enosis in the past with another stent placed in the LAD, has a history of dyslipidemia, sleep apnea c lassic symptoms. We will plan for heart catheterization today to define was done in regard to the to toussaint, which will be on 12/26/2021 to define his coronary anatomy. The patient understands the risk and the benefit and agrees to proceed. CRISTINA/MODL Voice ID: [id number] Report ID: [id number]
== END 2021-12-26 16:01 | disposition home or self-care (01) ==
LOC: ER 01:01 → ERHOLD 03:04 → 2ND 15:14
PROVIDERS: ADMIT Internal Medicine; ATTEND Internal Medicine
DX: I25.110 Atherosclerotic heart disease of native coronary artery with unstable angina pectoris (principal); T82.855A Stenosis of coronary artery stent, initial encounter; I25.2 Old myocardial infarction; I10 Essential (primary) hypertension; E78.5 Hyperlipidemia, unspecified; G47.33 Obstructive sleep apnea (adult) (pediatric); Z99.81 Dependence on supplemental oxygen; Z87.891 Personal history of nicotine dependence; Z79.02 Long term (current) use of antithrombotics/antiplatelets; Z79.82 Long term (current) use of aspirin; Z79.899 Other long term (current) drug therapy; Z88.8 Allergy status to other drugs, medicaments and biological substances; Z20.822 Contact with and (suspected) exposure to COVID-19
CPT/HCPCS: 93005; 93306; 85025; 80048; 36415 ×2; 85610; 80061; 84484 ×3; 80053; 83880; 71045; 93454; 99285; 87811; C1893; C1760; Q9967; G0269; J1650; J2250; J3010; G0378 ×4; J7040; J0583

== ENCOUNTER 2025-02-12 00:46 | Emergency (ER) | payer BC ==
--- OUTSIDE RECORDS SUMMARY | 2025-02-12 00:51 | XMS REPORT | Continuity of Care Document ---
Author Name Unknown Address [address] [place] [address] [facility] [address] [place] [address] Care Team Providers Care Supplier Quality Manager Name Role Phone CLAUDIA ARVIZU Primary Care Physician UnavailClaudia Pfeiffer Attending Clinician Unavailable BROOKE SHANNON Attending Clinician Unavailabl KARINA Jaimes Attending Clinician Unavailable KARINA BARAHONA Attending Clinician Unavailable Hector Wells Attending Clinician [phone] Unknown, Attending Attending Clinician Unavailab HECTOR Mejia Attending Clinician Unavailab SEFERINO Branch Attending Clinician Unavailable Seferino Wiley MD Attending Clinician [phone] Yazmin Hurd PA-C Attending Clinician [phone] YAZMIN HURD Attending Clinician Unavailable Vaccine, Ang Db [facility] Attending Clinician Unavailab Mina Negro Attending Clinician [phone] Hector Wells Attending Clinician [phone] Rosio Lema Attending Clinician [phone] ROSIO TONG Attending Clinician Unavailable Doctor Unassigned, [place] Attending Clinician U EMMA Youngblood Attending Clinician Unavail able Sarah FOREST RANGEREmma Milan Attending Clinician [phone] [facility] Attending Clinician Unavailable CATRINA MAYER Attending Clinician Unavailabl e Catrina Ray Attending Clinician [phone] Unknown, Attending Attending Clinician Unavailab MINA Ho Attending Clinician Unavailable Provider, [facility] Attending Clinician Un available Amanda Barnett Attending Clinician [phone] AMANDA MEDEROS Attending Clinician Unavailable OSKAR WILL Attending Clinician Unavailable Silvio RN, Roshni Banerjee Attending Clinician Unavailab carmela Pcp, Patient Does Not Have A Attending Clinician Lab, Adc Fam Pob I Attending Clinician Unavailab EMMA Olivo Admitting Clinician Unavail able Payers Payer Name Policy Type Policy Number Effective Date Expirati on Date Source [place] [id number] [facility] - OUT OF STATE [id number] 2022 00:00:00 [place] [address] [id number] 2020 00:00:00 [facility] Problems Condition Name Condition Details Condition Category Status Onset Date Resolution Date Last Treatment Date Treating Clinician Comments Source Left flank pain Left flank pain Disease Active 08-27 00:00: 00 [facility] Family history of nephrolith iasis Family history of nephrolith iasis Disease Active 08-27 00:00: 00 [facility] [id number] Kidney stones Problem [facility] [id number] BMI 37.0-37.9, adult Problem [facility] [id number] Coronary artery disease involving coronary bypass graft of [place] heart, angina presence unspecifie d Problem [facility] [id number] Seasonal allergies Problem [facility] [id number] Screening PSA (prostate specific antigen) Problem [facility] [id number] Vapes nicotine containing substance Problem [facility] [id number] Cigarette nicotine dependence in remission Problem [facility] [id number] Hemorrhoid s, unspecifie d hemorrhoid type Problem [facility] [id number] Coronary stent patent Problem [facility] [id number] Sleep apnea in adult Problem [facility] [id number] Essential hypertensi on Problem [facility] [id number] History of BPH Problem [facility] Allergies, Adverse Reactions, Alerts Allergy Name Allergy Type Status Severity Reaction(s) Onset Date Inactive Date Treating Clinician Comments Source PROCHLOR PERAZINE DRUG INGREDI Active Unknown-Cmnt 10-30 00:00: 00 [facility] Prochlor perazine Propensi ty to adverse reaction s Active Unknown - See comments 10-30 00:00: 00 [facility] 0 Drug allergy Active Unknown [facility] Social History Social Habit Start Date Stop Date Quantity Comments Source History of Tobacco Use [facility] Sex Assigned At [facility] Sexual orientation U [facility] History of Social function 2024-10-21 00:00:00 2024-10-21 00:00:00 [facility] Exposure to SARS-CoV-2 (event) 2021-11-02 00:00:00 2021-11-12 16:06:00 Not sure [facility] Tobacco use and exposure 2020-10-30 00:00:00 2020-10-30 00:00:00 User of smokeless tobacco [facility] Smoking Status Start Date Stop Date Source Former Smoker 2023-04-09 00:00:00 2023-04-09 00:00:00 [facility] Never smoked tobacco [facility] Medications Ordered Medication Name Filled Medication Name Start Date Stop Date Current Medication? Ordering Clinician Indication Dosage Frequency Signature (SIG) Comments Components Source evolocumab (REPATHA SURECLICK) 140 mg/mL subcutaneou s injection 10-21 09:08: 05 Yes inject under the skin. [facility] evolocumab (REPATHA PUSHTRONEX) 420 mg/3.5 mL injection 10-21 09:06: 42 Yes 420mg inject 3.5 mL under the skin. [facility] sulfamethox azole-trime thoprim (BACTRIM DS) 800-160 mg per tablet 10-21 00:00: 00 10-29 04:59 :00 No [id number] 1{tbl} Take 1 tablet by mouth in the morning and 1 tablet in the evening. Do all this for 7 days. [facility] azithromyci n 250 mg tablet 10-16 00:00: 00 10-23 04:59 :00 No [id number] 250mg Take 1 tablet by mouth in the morning for 6 doses. Take 500 mg on day 1 and 250 mg from day 2- day 5 [facility] methylPREDN ISolone (MEDROL, ANTONIA,) 4 mg tablets 07-19 00:00: 00 Yes [id number] Take by mouth SEE-INSTRU CTIONS. follow package directions [facility] amoxicillin -pot clavulanate 875-125 mg per tablet 07-19 00:00: 00 07-30 05:59 :00 No [id number] 1{tbl} Take 1 tablet by mouth in the morning and 1 tablet in the evening. Do all this for 10 days. [facility] benzonatate 100 mg capsule 07-19 00:00: 00 07-27 05:59 :00 No [id number] 100mg Take 1 capsule by mouth 3 (three) times daily as needed for Cough for up to 7 days. [facility] azelastine 137 mcg (0.1 %) nasal spray 2023-05 00:00: 00 Yes [id number] 1{spray } Use 1 [place] in each nostril in the morning and 1 [place] in the evening. Use in each nostril as directed [facility] fluticasone propionate 50 mcg/actuati on nasal spray 2023-05 00:00: 00 Yes [id number] 1{spray } Use 1 [place] in each nostril in the morning. [facility] amoxicillin -clavulanat e (AUGMENTIN) 875-125 mg per tablet 2023-05 00:00: 00 03-29 05:59 :00 No [id number] 1{tbl} Take 1 tablet by mouth in the morning and 1 tablet in the evening. Do all this for 7 days. [facility] acetaminoph en (TYLENOL) tablet 650 mg 2023-05 00:45: 00 03-16 23:59 :00 No [id number] 650mg 650 mg, Oral, ONCE, 1 dose, On Thu03/16/24 at 1945, Routine [facility] ondansetron (ZOFRAN-ODT ) disintegrat ing tablet 4 mg 2023-05 00:30: 00 03-16 23:36 :00 No [id number] 4mg 4 mg, Oral, ONCE, 1 dose, On Thu03/16/24 at 1930, Routine [facility] ondansetron 4 mg disintegrat ing tablet 2023-05 00:00: 00 Yes [id number] 4mg Take 1 tablet by mouth every 8 (eight) hours as needed for Nausea and Vomiting (N/V). [facility] bromphenira mine-pseudo ephedrine-D M (BROMFED DM) 2-30-10 mg/5 mL syrup 2023-05 00:00: 00 Yes [id number] 5mL Take 5 mL by mouth 3 (three) times daily as needed for Cold symptoms or Cough. [facility] albuterol 90 mcg/actuati on inhaler 2023-05 00:00: 00 Yes [id number] 2{puff} Inhale 2 Puffs every 6 (six) hours as needed for Shortness of Breath or Chest tightness. [facility] Tamsulosin HCl 0.4 MG Tamsulosin HCl 0.4 MG 2022-05 2-08 00:00: 00 No 1{capsu le} QD Tamsulosin HCl 0.4 MG mupirocin 2 % ointment 11-12 00:00: 00 Yes [id number] Apply to area(s) 3 (three) times daily. [facility] sulfamethox azole-trime thoprim (BACTRIM DS) 800-160 mg per tablet 11-12 00:00: 00 11-20 04:59 :00 No [id number] 1{tbl} Take 1 tablet by mouth 2 (two) times daily for 7 days. [facility] PRALUENT PEN 75 mg/mL PnIj 16 00:00: 00 Yes INJECT DIRECTED UNDER THE SKIN EVERY 2 WEEKS [facility] lisinopriL 2.5 mg tablet 10-29 00:00: 00 Yes [facility] clopidogreL 75 mg tablet 10-29 00:00: 00 Yes [facility] methocarbam oL 750 mg tablet 10-23 00:00: 00 Yes TAKE 1 TABLET BY MOUTH EVERY 6 HOURS FOR 15 DAYS NEEDED [facility] predniSONE 20 mg tablet 10-23 00:00: 00 08-27 00:00 :00 No 20mg Take 20 mg by mouth daily. [facility] aspirin 81 mg EC tablet 10-18 00:00: 00 Yes 81mg Take 1 tablet by mouth in the morning. [facility] atorvastati n 80 mg tablet 10-11 00:00: 00 Yes 80mg Take 1 tablet by mouth in the morning. [facility] Kenalog (Triamcinol one) Kenalog (Triamcinol one) 11-19 00:00: 00 No 40mg [facility] Dexamethaso ne Dexamethaso ne 10-17 00:00: 00 No 10mg [facility] Aspirin Adult Low Strength 81 MG Aspirin Adult Low Strength 81 MG No 1{table t} QD Aspirin Adult Low Strength 81 MG Lisinopril 5 MG Lisinopril 5 MG No 1{table t} QD Lisinopril 5 MG Metoprolol Succinate ER 25 MG Metoprolol Succinate ER 25 MG No 1{table t} QD Metoprolol Succinate ER 25 MG Nitroglycer in 0.4 MG Nitroglycer in 0.4 MG No Nitroglyce rin 0.4 MG Atorvastati n Calcium 40 MG Atorvastati n Calcium 40 MG No 1{table t} QD Atorvastat in Calcium 40 MG Eplerenone 25 MG Eplerenone 25 MG No 1{table t} QD Eplerenone 25 MG Repatha 140 MG/ML Repatha 140 MG/ML No Repatha 140 MG/ML Immunizations Ordered Immunization Name Filled Immunization Name Date Status Comments Source Flucelvax - single dose syringe Flucelvax - single dose syringe 2022-04-07 11:00:00 Completed [facility] SARS-COV-2 COVID-19 PFIZER REE-SUCROSE VACCINE (MODI TOP) 2021-11-12 00:00:00 Completed [facility] SARS-COV-2 COVID-19 PFIZER REE-SUCROSE VACCINE (MODI TOP) 2021-11-12 00:00:00 Completed [facility] Pfizer COVID-19 Vaccine Pfizer COVID-19 Vaccine 2021-05-11 11:34:00 Completed [facility] Pfizer COVID-19 Vaccine Pfizer COVID-19 Vaccine 2021-05-11 11:34:00 Completed [facility] SARS-COV-2 COVID-19 PFIZER VACCINE 2021-05-11 00:00:00 Completed [facility] SARS-COV-2 COVID-19 PFIZER VACCINE 2021-05-11 00:00:00 Completed [facility] SARS-COV-2 COVID-19 PFIZER VACCINE 2021-05-11 00:00:00 Completed [facility] SARS-COV-2 COVID-19 PFIZER VACCINE 2021-05-11 00:00:00 Completed [facility] SARS-COV-2 COVID-19 PFIZER VACCINE 2021-05-11 00:00:00 Completed [facility] SARS-COV-2 COVID-19 PFIZER VACCINE 2021-05-11 00:00:00 Completed [facility] SARS-COV-2 COVID-19 PFIZER VACCINE 2021-05-11 00:00:00 Completed [facility] Flucelvax - multidose vial Flucelvax - multidose vial 2021-04-01 14:03:00 Completed [facility] Flucelvax - multidose vial Flucelvax - multidose vial 2021-04-01 14:03:00 Completed [facility] Pfizer COVID-19 Vaccine Pfizer COVID-19 Vaccine 2020-08-25 15:59:00 Completed [facility] Pfizer COVID-19 Vaccine Pfizer COVID-19 Vaccine 2020-08-25 15:59:00 Completed [facility] SARS-COV-2 COVID-19 PFIZER VACCINE 2020-08-25 00:00:00 Completed [facility] SARS-COV-2 COVID-19 PFIZER VACCINE 2020-08-25 00:00:00 Completed [facility] SARS-COV-2 COVID-19 PFIZER VACCINE 2020-08-25 00:00:00 Completed [facility] SARS-COV-2 COVID-19 PFIZER VACCINE 2020-08-25 00:00:00 Completed [facility] SARS-COV-2 COVID-19 PFIZER VACCINE 2020-08-25 00:00:00 Completed [facility] SARS-COV-2 COVID-19 PFIZER VACCINE 2020-08-25 00:00:00 Completed [facility] SARS-COV-2 COVID-19 PFIZER VACCINE 2020-08-25 00:00:00 Completed [facility] Pfizer COVID-19 Vaccine Pfizer COVID-19 Vaccine 2020-08-04 15:58:00 Completed [facility] Pfizer COVID-19 Vaccine Pfizer COVID-19 Vaccine 2020-08-04 15:58:00 Completed [facility] SARS-COV-2 COVID-19 PFIZER VACCINE 2020-08-04 00:00:00 Completed [facility] SARS-COV-2 COVID-19 PFIZER VACCINE 2020-08-04 00:00:00 Completed [facility] SARS-COV-2 COVID-19 PFIZER VACCINE 2020-08-04 00:00:00 Completed [facility] SARS-COV-2 COVID-19 PFIZER VACCINE 2020-08-04 00:00:00 Completed [facility] SARS-COV-2 COVID-19 PFIZER VACCINE 2020-08-04 00:00:00 Completed [facility] SARS-COV-2 COVID-19 PFIZER VACCINE 2020-08-04 00:00:00 Completed [facility] SARS-COV-2 COVID-19 PFIZER VACCINE 2020-08-04 00:00:00 Completed [facility] Flublok Flublok 2019-03-14 10:09:00 Completed [facility] Flublok Flublok 2019-03-14 10:09:00 Completed [facility] Kenalog (Triamcinolone) Kenalog (Triamcinolone) 2018-11-19 09:28:00 Completed [facility] Dexamethasone Dexamethasone 2018-11-19 09:28:00 Completed [facility] Kenalog (Triamcinolone) Kenalog (Triamcinolone) 2017-10-17 10:48:00 Completed [facility] Dexamethasone Dexamethasone 2017-10-17 10:48:00 Completed [facility] Pfizer COVID-19 Vaccine Pfizer COVID-19 Vaccine Unknown Completed [facility] Flucelvax - multidose vial Flucelvax - multidose vial Unknown Completed [facility] Flublok Flublok Unknown Completed [facility] Flucelvax - single dose syringe Flucelvax - single dose syringe Unknown Completed [facility] Pfizer COVID-19 Vaccine Pfizer COVID-19 Vaccine Unknown Completed [facility] Fluarix Fluarix Unknown Completed [facility] Flucelvax - multidose vial Flucelvax - multidose vial Unknown Completed [facility] Flublok Flublok Unknown Completed [facility] Flucelvax - single dose syringe Flucelvax - single dose syringe Unknown Completed [facility] Pfizer COVID-19 Vaccine Pfizer COVID-19 Vaccine Unknown Completed [facility] Fluarix Fluarix Unknown Completed [facility] Flucelvax - multidose vial Flucelvax - multidose vial Unknown Completed [facility] Flublok Flublok Unknown Completed [facility] Flucelvax - single dose syringe Flucelvax - single dose syringe Unknown Completed [facility] Pfizer COVID-19 Vaccine Pfizer COVID-19 Vaccine Unknown Completed [facility] Fluarix (IIV4) - SDS - 0.5mL Fluarix (IIV4) - SDS - 0.5mL Unknown Completed [facility] Flucelvax (ccIIV4) - MDV - 0.5mL Flucelvax (ccIIV4) - MDV - 0.5mL Unknown Completed [facility] Flublok (RIV4) - SDS - 0.5mL Flublok (RIV4) - SDS - 0.5mL Unknown Completed [facility] Flucelvax (ccIIV4) - SDS - 0.5mL Flucelvax (ccIIV4) - SDS - 0.5mL Unknown Completed [facility] Pfizer COVID-19 Vaccine Pfizer COVID-19 Vaccine Unknown Completed [facility] Fluarix (IIV4) - SDS - 0.5mL Fluarix (IIV4) - SDS - 0.5mL Unknown Completed [facility] Flucelvax (ccIIV4) - MDV - 0.5mL Flucelvax (ccIIV4) - MDV - 0.5mL Unknown Completed [facility] Flublok (RIV4) - SDS - 0.5mL Flublok (RIV4) - SDS - 0.5mL Unknown Completed [facility] Flucelvax (ccIIV4) - SDS - 0.5mL Flucelvax (ccIIV4) - SDS - 0.5mL Unknown Completed [facility] Pfizer COVID-19 Vaccine Pfizer COVID-19 Vaccine Unknown Completed [facility] Fluarix (IIV4) - SDS - 0.5mL Fluarix (IIV4) - SDS - 0.5mL Unknown Completed [facility] Flucelvax (ccIIV4) - MDV - 0.5mL Flucelvax (ccIIV4) - MDV - 0.5mL Unknown Completed [facility] Flublok (RIV4) - SDS - 0.5mL Flublok (RIV4) - SDS - 0.5mL Unknown Completed [facility] Flucelvax (ccIIV4) - SDS - 0.5mL Flucelvax (ccIIV4) - SDS - 0.5mL Unknown Completed [facility] Pfizer COVID-19 Vaccine Pfizer COVID-19 Vaccine Unknown Completed [facility] Fluarix (IIV4) - SDS - 0.5mL Fluarix (IIV4) - SDS - 0.5mL Unknown Completed [facility] Flucelvax (ccIIV4) - MDV - 0.5mL Flucelvax (ccIIV4) - MDV - 0.5mL Unknown Completed [facility] Flublok (RIV4) - SDS - 0.5mL Flublok (RIV4) - SDS - 0.5mL Unknown Completed [facility] Flucelvax (ccIIV4) - SDS - 0.5mL Flucelvax (ccIIV4) - SDS - 0.5mL Unknown Completed [facility] SARS-COV-2 COVID-19 PFIZER VACCINE Unknown Completed [facility] Vital Signs Vital Name Observation Time Observation Value Comments S ource height 2024-11-11 08:00:00 71 [in_i] Commo n [facility] weight 2024-11-11 08:00:00 271.8 [lb_av] Co mmon [facility] temperature 2024-11-11 08:00:00 97.9 [degF] Com mon [facility] bmi 2024-11-11 08:00:00 37.9 kg/m2 Commo n [facility] oximetry 2024-11-11 08:00:00 96 % Commo n [facility] respiratory rate 2024-11-11 08:00:00 15 /min [facility] blood pressure systolic 2024-11-11 08:00:00 120 mm[Hg] [facility] blood pressure diastolic 2024-11-11 08:00:00 68 mm[Hg] [facility] Systolic blood pressure 2024-10-21 14:01:00 118 mm[Hg] [facility] Diastolic blood pressure 2024-10-21 14:01:00 78 mm[Hg] [facility] Heart rate 2024-10-21 14:01:00 91 /min [facility] Body temperature 2024-10-21 14:01:00 36.56 Mira [facility] Body height 2024-10-21 14:01:00 180.3 cm Univ [facility] Body weight 2024-10-21 14:01:00 124.921 kg [facility] BMI 2024-10-21 14:01:00 38.41 kg/m2 [facility] Oxygen saturation in Arterial blood by Pulse oximetry 2024-10-21 14:01:00 95 /min [facility] Systolic blood pressure 2024-10-16 14:11:00 112 mm[Hg] [facility] Diastolic blood pressure 2024-10-16 14:11:00 73 mm[Hg] [facility] Heart rate 2024-10-16 14:11:00 73 /min [facility] Body temperature 2024-10-16 14:11:00 36.33 Mira [facility] Respiratory rate 2024-10-16 14:11:00 16 /min [facility] Body height 2024-10-16 14:11:00 180.3 cm per pt [facility] Body weight 2024-10-16 14:11:00 126.695 kg [facility] BMI 2024-10-16 14:11:00 38.96 kg/m2 [facility] Oxygen saturation in Arterial blood by Pulse oximetry 2024-10-16 14:11:00 95 /min [facility] Systolic blood pressure 2024-07-19 19:42:00 117 mm[Hg] [facility] Diastolic blood pressure 2024-07-19 19:42:00 73 mm[Hg] [facility] Heart rate 2024-07-19 19:42:00 91 /[facility] 2024-07-19 19:42:00 36.33 Mira [facility] Respiratory rate 2024-07-19 19:42:00 16 /min [facility] Body height 2024-07-19 19:42:00 180.3 cm [facility] Body weight 2024-07-19 19:42:00 123.514 kg [facility] BMI 2024-07-19 19:42:00 37.98 kg/m2 [facility] Oxygen saturation in Arterial blood by Pulse oximetry 2024-07-19 19:42:00 97 /min [facility] height 2024-05-23 15:00:00 71 [in_i] Commo n [facility] weight 2024-05-23 15:00:00 276.4 [lb_av] Co mmon [facility] temperature 2024-05-23 15:00:00 97.4 [degF] Com mon [facility] bmi 2024-05-23 15:00:00 38.55 kg/m2 Comm on [facility] oximetry 2024-05-23 15:00:00 94 % Commo n [facility] respiratory rate 2024-05-23 15:00:00 16 /min Common [facility] blood pressure systolic 2024-05-23 15:00:00 122 mm[Hg] Common [facility] blood pressure diastolic 2024-05-23 15:00:00 62 mm[Hg] Common [facility] height 2024-05-23 15:00:00 71 [in_i] Commo n [facility] weight 2024-05-23 15:00:00 276.4 [lb_av] Co mmon [facility] temperature 2024-05-23 15:00:00 97.4 [degF] Com mon [facility] bmi 2024-05-23 15:00:00 38.55 kg/m2 Comm on [facility] oximetry 2024-05-23 15:00:00 94 % Commo n [facility] respiratory rate 2024-05-23 15:00:00 16 /min Common [facility] blood pressure systolic 2024-05-23 15:00:00 122 mm[Hg] Common [facility] blood pressure diastolic 2024-05-23 15:00:00 62 mm[Hg] [facility] Systolic blood pressure 2024-03-21 15:02:00 120 mm[Hg] [facility] Diastolic blood pressure 2024-03-21 15:02:00 77 mm[Hg] [facility] Heart rate 2024-03-21 15:02:00 81 /min [facility] Body temperature 2024-03-21 15:02:00 37.22 Mira [facility] Respiratory rate 2024-03-21 15:02:00 16 /min [facility] Body height 2024-03-21 15:02:00 180.3 cm [facility] Body weight 2024-03-21 15:02:00 123.832 kg [facility] BMI 2024-03-21 15:02:00 38.08 kg/m2 [facility] Oxygen saturation in Arterial blood by Pulse oximetry 2024-03-21 15:02:00 98 /min [facility] Systolic blood pressure 2024-03-16 23:29:00 117 mm[Hg] [facility] Diastolic blood pressure 2024-03-16 23:29:00 78 mm[Hg] [facility] Heart rate 2024-03-16 23:29:00 99 /min [facility] Body temperature 2024-03-16 23:29:00 38.56 Mira [facility] Respiratory rate 2024-03-16 23:29:00 15 /min [facility] Body height 2024-03-16 23:29:00 180.3 cm [facility] Body weight 2024-03-16 23:29:00 124.286 kg [facility] BMI 2024-03-16 23:29:00 38.22 kg/m2 [facility] Oxygen saturation in Arterial blood by Pulse oximetry 2024-03-16 23:29:00 96 /min [facility] height 2024-01-18 16:00:00 71 [in_i] Commo n [facility] weight 2024-01-18 16:00:00 275 [lb_av] Comm on [facility] bmi 2024-01-18 16:00:00 38.35 kg/m2 Comm on [facility] height 2023-10-08 08:40:00 71 [in_i] Commo n [facility] weight 2023-10-08 08:40:00 274.2 [lb_av] Co mmon [facility] temperature 2023-10-08 08:40:00 97.8 [degF] Com mon [facility] bmi 2023-10-08 08:40:00 38.24 kg/m2 Comm on [facility] oximetry 2023-10-08 08:40:00 93 % Commo n [facility] respiratory rate 2023-10-08 08:40:00 16 /min Common [facility] blood pressure systolic 2023-10-08 08:40:00 118 mm[Hg] Common [facility] blood pressure diastolic 2023-10-08 08:40:00 70 mm[Hg] Common [facility] height 2023-04-09 09:00:00 71 [in_i] Commo n [facility] weight 2023-04-09 09:00:00 274.0 [lb_av] Co mmon [facility] temperature 2023-04-09 09:00:00 97.9 [degF] Com [facility] bmi 2023-04-09 09:00:00 38.21 kg/m2 Comm on [facility] oximetry 2023-04-09 09:00:00 96 % Commo n [facility] respiratory rate 2023-04-09 09:00:00 15 /min Common [facility] blood pressure systolic 2023-04-09 09:00:00 105 mm[Hg[facility] blood pressure diastolic 2023-04-09 09:00:00 69 mm[Hg] Common [facility] height 2022-10-07 10:40:00 71 [in_i] Commo n [facility] weight 2022-10-07 10:40:00 282.4 [lb_av] Co [facility] temperature 2022-10-07 10:40:00 98.1 [degF] Com [facility] bmi 2022-10-07 10:40:00 39.38 kg/m2 Comm on [facility] oximetry 2022-10-07 10:40:00 95 % Commo n [facility] respiratory rate 2022-10-07 10:40:00 15 /min [facility] blood pressure systolic 2022-10-07 10:40:00 119 mm[Hg] Common [facility] blood pressure diastolic 2022-10-07 10:40:00 76 mm[Hg] Common [facility] height 2022-04-07 10:40:00 71 [in_i] Commo n [facility] weight 2022-04-07 10:40:00 267.2 [lb_av] Co [facility] temperature 2022-04-07 10:40:00 97.5 [degF] Com [facility] bmi 2022-04-07 10:40:00 37.26 kg/m2 Comm on [facility] oximetry 2022-04-07 10:40:00 96 % Commo n [facility] respiratory rate 2022-04-07 10:40:00 17 /min Common [facility] blood pressure systolic 2022-04-07 10:40:00 111 mm[Hg] Common [facility] blood pressure diastolic 2022-04-07 10:40:00 66 mm[Hg] [facility] Systolic blood pressure 2021-11-12 21:14:00 117 mm[Hg] [facility] Diastolic blood pressure 2021-11-12 21:14:00 76 mm[Hg] [facility] Heart rate 2021-11-12 21:14:00 71 /min [facility] Body temperature 2021-11-12 21:14:00 36.44 Mira [facility] Respiratory rate 2021-11-12 21:14:00 16 /min [facility] Body height 2021-11-12 21:14:00 180.3 cm [facility] Body weight 2021-11-12 21:14:00 126.1 kg [facility] BMI 2021-11-12 21:14:00 38.77 kg/m2 [facility] Oxygen saturation in Arterial blood by Pulse oximetry 2021-11-12 21:14:00 96 /min [facility] height 2021-10-07 10:20:00 71 [in_i] Commo n [facility] weight 2021-10-07 10:20:00 271.8 [lb_av] Co mmon [facility] temperature 2021-10-07 10:20:00 97.2 [degF] Com mon [facility] bmi 2021-10-07 10:20:00 37.9 kg/m2 Commo n [facility] oximetry 2021-10-07 10:20:00 98 % Commo n [facility] respiratory rate 2021-10-07 10:20:00 18 /min [facility] blood pressure systolic 2021-10-07 10:20:00 109 mm[Hg] [facility] blood pressure diastolic 2021-10-07 10:20:00 68 mm[Hg] [facility] Systolic blood pressure 2021-08-27 13:18:00 130 mm[Hg] [facility] Diastolic blood pressure 2021-08-27 13:18:00 81 mm[Hg] [facility] Heart rate 2021-08-27 13:18:00 77 /min [facility] Body temperature 2021-08-27 13:18:00 36.72 Mira [facility] Body height 2021-08-27 13:18:00 180.3 cm [facility] Body weight 2021-08-27 13:18:00 122.97 kg [facility] BMI 2021-08-27 13:18:00 37.81 kg/m2 [facility] oximetry 2021-04-01 13:20:00 96 % Commo n [facility] respiratory rate 2021-04-01 13:20:00 18 /min [facility] blood pressure systolic 2021-04-01 13:20:00 95 mm[Hg] [facility] blood pressure diastolic 2021-04-01 13:20:00 60 mm[Hg] Common [facility] height 2021-04-01 13:20:00 71 [in_i] Commo n [facility] weight 2021-04-01 13:20:00 269.8 [lb_av] Co mmon [facility] temperature 2021-04-01 13:20:00 98.5 [degF] Com mon [facility] bmi 2021-04-01 13:20:00 37.63 kg/m2 Comm on [facility] height 2020-11-15 13:00:00 71 [in_i] Commo n [facility] weight 2020-11-15 13:00:00 279 [lb_av] Comm on [facility] temperature 2020-11-15 13:00:00 98.2 [degF] Com mon [facility] bmi 2020-11-15 13:00:00 38.91 kg/m2 Comm on [facility] oximetry 2020-11-15 13:00:00 96 % Commo n [facility] respiratory rate 2020-11-15 13:00:00 18 /min [facility] blood pressure systolic 2020-11-15 13:00:00 110 mm[Hg] [facility] blood pressure diastolic 2020-11-15 13:00:00 70 mm[Hg] [facility] height 2020-10-23 16:00:00 71 [in_i] Commo n [facility] weight 2020-10-23 16:00:00 287 [lb_av] Comm on [facility] temperature 2020-10-23 16:00:00 98.0 [degF] Com mon [facility] bmi 2020-10-23 16:00:00 40.02 kg/m2 Comm on [facility] oximetry 2020-10-23 16:00:00 95 % Commo n [facility] respiratory rate 2020-10-23 16:00:00 16 /min [facility] blood pressure systolic 2020-10-23 16:00:00 115 mm[Hg] Common [facility] blood pressure diastolic 2020-10-23 16:00:00 75 mm[Hg] [facility] Procedures Procedure Date / Time Performed Performing Clinicia n Source POCT MOLECULAR STREP 2024-10-16 14:17:00 Kell, Jeniffer dawson [facility] POCT SARS-COV-2 ANTIGEN (BINAX NOW) 2024-07-19 00:00:00 Hector Regan [facility] POCT SARS-COV-2 ANTIGEN (BINAX NOW) 2024-03-16 23:48:00 iMna Josue [facility] POCT MOLECULAR FLU 2024-03-16 23:36:00 Unknown, Attend ing [facility] SARS-COV-2 COVID-19 VACCINE 12 YRS+,0.3ML,IM (PFIZER - MODI [facility]) 2021-11-12 21:40:35 Doctor Unassigned, [place] [facility] ASSIGNMENT OF BENEFITS 2021-11-12 21:07:27 Docto r Unassigned, [place] [facility] CT ABDOMEN PELVIS WO CONTRAST 2021-09-02 13:51:17 Emma Waldrop [facility] ASSIGNMENT OF BENEFITS 2021-09-02 13:27:14 Docto r Unassigned, [place] [facility] Encounters Start Date/Time End Date/Time Encounter Type Admission Type Attending [facility] Care Department Encounter ID Source 2024-01-14 08:03:00 Outpatient Claudia Arvizu [facility] [id number] [facility] 2023-10-08 08:40:00 Outpatient Claudia ArvizuLC [facility] [id number] [facility] 2023-10-05 11:23:00 Outpatient Claudia ArvizuLC [facility] [id number] [facility] 2023-04-07 08:31:00 Outpatient Claudia Arvizu [facility] [id number] [facility] 2022-10-07 09:33:00 Outpatient Claudia Arvizu [facility] [id number] [facility] 2022-04-03 14:05:01 Outpatient Claudia Arvizu [facility] [id number] [facility] 2021-10-03 15:49:00 Outpatient Claudia Arvizu [facility] [id number] [facility] 2021-06-19 14:10:42 Outpatient Claudia ArvizuLMLC STLMLC [id number] [facility] 2021-06-19 11:06:05 [facility] [id number] [facility] 2024-11-11 00:00:00 2024-11-11 00:00:00 OFFICE VISIT [id number] 2024-10-21 09:00:00 2024-10-21 09:16:32 Urgent Care R BROOKE SHANNON [facility] 1.840.114 350.1.13.10 4.2.7.2.686 [id number] [facility] 2024-10-16 09:20:00 2024-10-16 09:28:32 Urgent Care R KARINA BARAHONA [facility] 1.2.840.114 350.1.13.10 4.2.7.2.686 [id number] [facility] 2024-08-12 00:00:00 2024-08-12 00:00:00 (TEL) [facility] [id number] [facility] 2024-07-19 13:00:00 2024-07-19 13:20:00 Urgent Care Hector Regan, Attending [facility] 1..840.114 350.1.13.10 4.2.7.2.686 [id number] [facility] 2024-07-19 13:00:00 2024-07-19 13:00:00 Outpatient R HECTOR REGAN [facility] [id number] [facility] 2024-05-23 00:00:00 2024-05-23 00:00:00 (ESTPT) Yohannes chester Patient [facility] [id number] [facility] 2024-03-21 10:00:00 2024-03-21 10:33:01 Outpatient R SEFERINO WILEY [facility] [id number] [facility] 2024-03-21 10:00:00 2024-03-21 10:33:01 Urgent Care Seferino Wiley Unknown, Attending [facility] 1.2.840.114 350.1.13.10 4.2.7.2.686 [id number] [facility] 2024-03-16 18:53:29 2024-03-16 23:59:00 Hospital Encounter Yazmin Hurd [facility] 1.2.840.114 350.1.13.10 4.2.7.2.686 [id number] [facility] 2024-03-16 17:40:00 2024-03-16 19:14:56 Urgent Care Yazmin Hurd Unknown, Attending [facility] 1.2.840.114 350.1.13.10 4.2.7.2.686 [id number] [facility] 2024-03-16 17:40:00 2024-03-16 19:14:56 Outpatient R YAZMIN HURD [facility] [id number] [facility] 2024-01-18 00:00:00 2024-01-18 00:00:00 OFFICE VISIT ESTAB PT LEVEL 3 [facility]LMLC [facility] [id number] [facility] 2023-10-08 00:00:00 2023-10-08 00:00:00 OFFICE VISIT ESTAB PT LEVEL 4 [facility]LMLC [facility] [id number] [facility] 2023-04-26 00:00:00 2023-04-26 00:00:00 (TEL) STLMLC [facility] [id number] [facility] 2023-04-09 00:00:00 2023-04-09 00:00:00 PREV VISIT EST AGE 40-64 STLMLC STLMLC [id number] [facility] 2022-10-10 00:00:00 2022-10-10 00:00:00 (TEL) STLMLC STLMLC [id number] [facility] 2022-10-07 00:00:00 2022-10-07 00:00:00 OFFICE VISIT ESTAB PT LEVEL 4 STLMLC STLMLC [id number] [facility] 2022-07-01 00:00:00 2022-07-01 00:00:00 (TEL) STLMLC STLML[facility] [id number] [facility] 2022-04-07 00:00:00 2022-04-07 00:00:00 OFFICE VISIT EST PT LEVEL 3 STLMLC STLMLC [id number] [facility] 2021-11-12 18:00:00 2021-11-12 18:10:00 Imm/Inj Visit Vaccine, Ang Mina Maher Kimberly J [facility] 1.2.840.114 350.1.13.10 4.2.7.2.686 [id number] [facility] 2021-11-12 16:20:00 2021-11-12 16:40:00 Urgent Care Rosio Tong Rania [facility] 1.2.840.114 350.1.13.10 4.2.7.2.686 [id number] [facility] 2021-11-12 16:20:00 2021-11-12 16:29:05 Outpatient R ROSIO TONG [facility] [id number] [facility] 2021-11-12 00:00:00 2021-11-12 00:00:00 Orders Only Doctor Unassigned, [place] [id number] 350.1.13.10 4.2.7.2.686 [id number] [facility] 2021-10-07 00:00:00 2021-10-07 00:00:00 OFFICE VISIT ESTAB PT LEVEL 4 STLMLC [facility] [id number] [facility] 2021-09-02 08:31:13 2021-09-02 23:59:00 Outpatient R EMMA WALDROP [facility] [id number] [facility] 2021-09-02 08:30:00 2021-09-02 23:59:00 Hospital Encounter SarahEmma Dia [facility] 1.2840.114 350.1.13.10 4.2.7.2.686 [id number] [facility] 2021-09-02 00:00:00 2021-09-02 00:00:00 Orders Only Doctor Unassigned, [place] [facility] 1.2.840.114 350.1.13.10 4.2.7.2.686 [id number] [facility] 2021-09-02 00:00:00 2021-09-02 00:00:00 Patient Secure Msg SarahEmma [facility] 1.2840.114 350.1.13.10 4.2.7.2.686 [id number] [facility] 2021-08-27 09:00:00 2021-08-27 09:02:44 Senior Cyber Intelligence Analyst Visit [facility] Sarah Emma [facility] 1.2840.114 350.1.13.10 4.2.7.2.686 [id number] [facility] 2021-08-27 08:00:00 2021-08-27 08:30:00 Office Visit Emma Waldrop [facility] 1.2840.114 350.1.13.10 4.2.7.2.686 [id number] [facility] 2021-08-27 08:00:00 2021-08-27 08:00:00 Outpatient EMMA GOINS [facility] [id number] [facility] 2021-08-27 08:00:00 2021-08-27 08:00:00 Outpatient EMMA GOINS [facility] [id number] [facility] 2021-08-27 08:00:00 2021-08-27 08:00:00 Outpatient EMMA GOINS [facility] [id number] [facility] 2021-08-20 00:00:00 2021-08-20 00:00:00 (TEL) STLMLC ST[facility] [id number] [facility] 2021-08-19 17:02:53 2021-08-19 23:59:00 Outpatient R CATRINA MAYER [facility] [id number] [facility] 2021-08-19 17:02:53 2021-08-19 23:59:00 Hospital Encounter Catrina [facility] 1.2840.114 350.1.13.10 4.2.7.2.686 [id number] [facility] 2021-08-19 17:02:52 2021-08-19 23:59:00 Hospital Encounter Catrina Mayer [facility] 1.2.840.114 350.1.13.10 4.2.7.2.686 [id number] [facility] 2021-08-19 17:00:00 2021-08-19 17:33:34 Urgent Care Catrina Mayer Unknown, Attending [facility] 1.2.840.114 350.1.13.10 4.2.7.2.686 [id number] [facility] 2021-05-11 12:20:00 2021-05-11 12:30:00 Imm/Inj Visit Vaccine, Ang Db Mina Ordonez [facility] 1..840.114 350.1.13.10 4.2.7.2.686 [id number] [facility] 2021-05-11 12:20:00 2021-05-11 12:20:00 Outpatient MINA RIVERA [facility] [id number] [facility] 2021-04-01 00:00:00 2021-04-01 00:00:00 PREV VISIT EST AGE 40-64 STLMLC STLMLC [id number] [facility] 2020-11-15 00:00:00 2020-11-15 00:00:00 OFFICE VISIT EST PT LEVEL 3 STLMLC STLMLC [id number] [facility] 2020-10-30 15:44:24 2020-10-30 16:33:31 Urgent Care Provider, [facility] Amanda Mederos [facility] 1..840.114 350.1.13.10 4.2.7.2.686 [id number] [facility] 2020-10-30 16:00:00 2020-10-30 16:00:00 Outpatient AMANDA ARELLANO [facility] [id number] [facility] 2020-10-30 00:00:00 2020-10-30 00:00:00 Orders Only Doctor Unassigned, [place] [facility] 1..840.114 350.1.13.10 4.2.7.2.686 [id number] [facility] 2020-10-23 00:00:00 2020-10-23 00:00:00 OFFICE VISIT EST PT LEVEL 3 STLMLC STLMLC [id number] [facility] 2020-08-25 11:35:00 2020-08-25 11:35:00 Outpatient OSKAR WILL [facility] [id number] [facility] 2020-08-21 00:00:00 2020-08-21 00:00:00 Letter (Out) Roshni Anguiano Chriss [facility] 1.840.114 350.1.13.10 4.2.7.2.686 [id number] [facility] 2020-08-21 00:00:00 2020-08-21 00:00:00 Telephone Pcp, Patient Does Not Have A [facility] 1.84.114 350.1.13.10 4.2.7.2.686 [id number] [facility] 2020-08-20 15:42:48 2020-08-20 15:57:48 Laboratory Only Lab, Adc Fam Pob I Hector Regan [facility] 1.840.114 350.1.13.10 4.2.7.2.686 [id number] [facility] 2020-08-20 15:45:00 2020-08-20 15:45:00 Outpatient HECTOR CARDONA [facility] [id number] [facility] 2020-08-20 00:00:00 2020-08-20 00:00:00 Letter (Out) Doctor Unassigned, [place] [facility] 1.840.114 350.1.13.10 4.2.7.2.686 [id number] [facility] 2020-06-13 00:00:00 2020-06-13 00:00:00 Outpatient STLMLC STLMLC [id number] [facility] 2020-01-09 14:20:00 2020-01-09 14:20:00 [facility] [id number] [facility] 2019-12-27 13:00:00 2019-12-27 13:00:[address] [facility] [id number] [facility] 2019-09-28 16:00:00 2019-09-28 16:00:[address] [facility] [id number] [facility] 2019-08-25 13:20:00 2019-08-25 13:20:[address] [facility] [facility] [id number] [facility] 2019-03-28 09:40:00 2019-03-28 09:40:00 [place] [id number] [facility] 2019-02-11 08:00:00 2019-02-11 08:00:00 [facility] [id number] [facility] 2018 12:22:00 2018 12:22:00 Outpatient [facility] [address] [place] [address] 2018-11-19 09:00:00 2018-11-19 09:00:00 [facility] [id number] [facility] 2018-10-04 09:54:00 2018-10-04 09:54:[address] [facility] [id number] [facility] 2018-09-27 10:45:00 2018-09-27 10:45:[address] [facility] [id number] [facility] 2018-08-11 14:30:00 2018-08-11 14:30:[address] [facility] [id number] [facility] 2018-07-29 10:45:00 2018-07-29 10:45:[address] [facility] [id number] [facility] 2018-05-17 09:30:00 2018-05-17 09:30:00 [facility] [id number] [facility] 2018-05-10 09:54:00 2018-05-10 09:54:00 [facility] [id number] [facility] 2018-03-08 16:06:00 2018-03-08 16:06:00 Out[facility] [id number] [facility] 2018-03-03 10:15:00 2018-03-03 10:15:00 [facility] [id number] [facility] 2018-01-21 16:00:00 2018-01-21 16:00:00 Outpatient [facility] [id number] [facility] 2017-10-22 08:30:00 2017-10-22 08:30:00 Outpatient [facility] [id number] [facility] Results Test Description Test Time Test Comments Results Result Co mments [facility] (BINAX NOW)2024-07-19 20:14:00* Test Item Value Reference Range Interpretation Comme nts POCT SARS-COV-2 ANTIGEN (test code = 32594-7) Not Detected Not Detected, See Comment On board controls acceptable with C Line (test code = 3574) Yes Lab Interpretation (test code = 92399-0) Normal [facility](CMP)2024-07-13 00:00:00* Test Item Value Reference Range Interpretation Comme nts PSA, TOTAL (test code = 2857-1) 0.60 ng/mL See_Comment N [Automated messa ge] The system which generated this result transmitted reference range: < OR = 4.00 ng/mL. The reference range was not used to interpret this result as normal/abnormal. ABSOLUTE BASOPHILS (test code = 704-7) 23 cells/uL See_Comment N [Automated m essage] The system which generated this result transmitted reference range: 0-200 cells/uL. The reference range was not used to interpret this result as normal/abnormal. ABSOLUTE EOSINOPHILS (test code = 711-2) 39 cells/uL See_Comment N [Automated m essage] The system which generated this result transmitted reference range: 15-500 cells/uL. The reference range was not used to interpret this result as normal/abnormal. ABSOLUTE LYMPHOCYTES (test code = 731-0) 1248 cells/uL See_Comment N [Automated m essage] The system which generated this result transmitted reference range: 850-3900 cells/uL. The reference range was not used to interpret this result as normal/abnormal. ABSOLUTE MONOCYTES (test code = 742-7) 218 cells/uL See_Comment N [Automated m essage] The system which generated this result transmitted reference range: 200-950 cells/uL. The reference range was not used to interpret this result as normal/abnormal. ABSOLUTE NEUTROPHILS (test code = 751-8) 6271 cells/uL See_Comment N [Automated m essage] The system which generated this result transmitted reference range: 1101-7808 cells/uL. The reference range was not used to interpret this result as normal/abnormal. BASOPHILS (test code = 706-2) 0.3 % N EOSINOPHILS (test code = 713-8) 0.5 % N HEMATOCRIT (test code = 4544-3) 46.6 % See_Comment N [Automated messa ge] The system which generated this result transmitted reference range: 38.5-50.0 %. The reference range was not used to interpret this result as normal/abnormal. HEMOGLOBIN (test code = 718-7) 15.7 g/dL See_Comment N [Automated messa ge] The system which generated this result transmitted reference range: 13.2-17.1 g/dL. The reference range was not used to interpret this result as normal/abnormal. LYMPHOCYTES (test code = 736-9) 16.0 % N MCH (test code = 785-6) 31.1 pg See_Comment N [Automated messa ge] The system which generated this result transmitted reference range: 27.0-33.0 pg. The reference range was not used to interpret this result as normal/abnormal. MCHC (test code = 786-4) 33.7 g/dL See_Comment N [Automated messa ge] The system which generated this result transmitted reference range: 32.0-36.0 g/dL. The reference range was not used to interpret this result as normal/abnormal. MCV (test code = 787-2) 92.3 fL See_Comment N [Automated messa ge] The system which generated this result transmitted reference range: 80.0-100.0 fL. The reference range was not used to interpret this result as normal/abnormal. MONOCYTES (test code = 5905-5) 2.8 % N MPV (test code = 776-5) 10.9 fL See_Comment N [Automated messa ge] The system which generated this result transmitted reference range: 7.5-12.5 fL. The reference range was not used to interpret this result as normal/abnormal. NEUTROPHILS (test code = 770-8) 80.4 % N PLATELET COUNT (test code = 777-3) 198 Thousand/uL See_Comment N [Automated message] The system which generated this result transmitted reference range: 140-400 Thousand/uL. The reference range was not used to interpret this result as normal/abnormal. RDW (test code = 788-0) 12.5 % See_Comment N [Automated messa ge] The system which generated this result transmitted reference range: 11.0-15.0 %. The reference range was not used to interpret this result as normal/abnormal. RED BLOOD CELL COUNT (test code = 789-8) 5.05 Million/uL See_Comment N [Automated message] The system which generated this result transmitted reference range: 4.20-5.80 Million/uL. The reference range was not used to interpret this result as normal/abnormal. WHITE BLOOD CELL COUNT (test code = 6690-2) 7.8 Thousand/uL See_Comment N [Automated message] The system which generated this result transmitted reference range: 3.8-10.8 Thousand/uL. The reference range was not used to interpret this result as normal/abnormal. CHOL/HDLC RATIO (test code = 9830-1) 2.4 (calc) See_Comment N [Automated messa ge] The system which generated this result transmitted reference range: <5.0 (calc). The reference range was not used to interpret this result as normal/abnormal. CHOLESTEROL, TOTAL (test code = 2093-3) 111 mg/dL See_Comment N [Automated message] The system which generated this result transmitted reference range: <200 mg/dL. The reference range was not used to interpret this result as normal/abnormal. HDL CHOLESTEROL (test code = 2085-9) 46 mg/dL See_Comment N [Automated [employer] [employer]] The system which generated this result transmitted reference range: > OR = 40 mg/dL. The reference range was not used to interpret this result as normal/abnormal. LDL-CHOLESTEROL (test code = 30781-4) 42 mg/dL (calc) N NON HDL CHOLESTEROL (test code = 25805-2) 65 mg/dL (calc) See_Comment N [Automated message] The system which generated this result transmitted reference range: <130 mg/dL (calc). The reference range was not used to interpret this result as normal/abnormal. TRIGLYCERIDES (test code = 2571-8) 146 mg/dL See_Comment N [Automated [employer]] The system which generated this result transmitted reference range: <150 mg/dL. The reference range was not used to interpret this result as normal/abnormal. ALBUMIN (test code = 1751-7) 4.8 g/dL See_Comment N [Automated [employer]] The system which generated this result transmitted reference range: 3.6-5.1 g/dL. The reference range was not used to interpret this result as normal/abnormal. ALBUMIN/GLOBULIN RATIO (test code = 1759-0) 1.8 (calc) See_Comment N [Automated message] The system which generated this result transmitted reference range: 1.0-2.5 (calc). The reference range was not used to interpret this result as normal/abnormal. ALKALINE PHOSPHATASE (test code = 6768-6) 67 U/L See_Comment N [Automated message] The system which generated this result transmitted reference range: 35-144 U/L. The reference range was not used to interpret this result as normal/abnormal. ALT (test code = 1742-6) 52 U/L See_Comment H [Automated [employer]] The system which generated this result transmitted reference range: 9-46 U/L. The reference range was not used to interpret this result as normal/abnormal. AST (test code = 1920-8) 26 U/L See_Comment N [Automated messa ge] The system which generated this result transmitted reference range: 10-35 U/L. The reference range was not used to interpret this result as normal/abnormal. BILIRUBIN, TOTAL (test code = 1975-2) 0.7 mg/dL See_Comment N [Automated messa ge] The system which generated this result transmitted reference range: 0.2-1.2 mg/dL. The reference range was not used to interpret this result as normal/abnormal. BUN/CREATININE RATIO (test code = 3097-3) SEE NOTE: (calc) See_Comment [Automated message] The system which generated this result transmitted reference range: 6-22 (calc). The reference range was not used to interpret this result as normal/abnormal. CALCIUM (test code = 95549-1) 9.8 mg/dL See_Comment N [Automated [employer]] The system which generated this result transmitted reference range: 8.6-10.3 mg/dL. The reference range was not used to interpret this result as normal/abnormal. CARBON DIOXIDE (test code = 2027-9) 29 mmol/L See_Comment N [Automated messa ge] The system which generated this result transmitted reference range: 20-32 mmol/L. The reference range was not used to interpret this result as normal/abnormal. CHLORIDE (test code = 5-0) 105 mmol/L See_Comment N [Automated [employer]] The system which generated this result transmitted reference range: 98-110 mmol/L. The reference range was not used to interpret this result as normal/abnormal. CREATININE (test code = 2160-0) 0.70 mg/dL See_Comment N [Automated messa ge] The system which generated this result transmitted reference range: 0.70-1.30 mg/dL. The reference range was not used to interpret this result as normal/abnormal. GLOBULIN (test code = 50388-2) 2.7 g/dL (calc) See_Comment N [Automated message] The system which generated this result transmitted reference range: 1.9-3.7 g/dL (calc). The reference range was not used to interpret this result as normal/abnormal. GLUCOSE (test code = 2345-7) 105 mg/dL See_Comment H [Automated messa ge] The system which generated this result transmitted reference range: 65-99 mg/dL. The reference range was not used to interpret this result as normal/abnormal. POTASSIUM (test code = 2823-3) 4.8 mmol/L See_Comment N [Automated [employer]] The system which generated this result transmitted reference range: 3.5-5.3 mmol/L. The reference range was not used to interpret this result as normal/abnormal. PROTEIN, TOTAL (test code = 2885-2) 7.5 g/dL See_Comment N [Automated [employer]] The system which generated this result transmitted reference range: 6.1-8.1 g/dL. The reference range was not used to interpret this result as normal/abnormal. SODIUM (test code = 2951-2) 139 mmol/L See_Comment N [Automated [employer]] The system which generated this result transmitted reference range: 135-146 mmol/L. The reference range was not used to interpret this result as normal/abnormal. UREA NITROGEN (BUN) (test code = 3094-0) 14 mg/dL See_Comment N [Automated message] The system which generated this result transmitted reference range: 7-25 mg/dL. The reference range was not used to interpret this result as normal/abnormal. POCT Molecular [id number] 23:48:10* Test Item Value Reference Range Interpretation Comme [facility] POCT Molecular FluA (test co de = 00405-9) Negative Negative POCT Molecular FluB (test co de = 26148-8) Negative Negative Lab Interpretation (test cod e = 58819-9) Normal [facility] SARS-COV-2 ANTIGEN (BINAX NOW)2024-03-16 23:48:00* Test Item Value Reference Range Interpretation Comme [facility] POCT SARS-COV-2 ANTIGEN (test code = 46731-3) Not Detected Not Detected, See Comment On board controls acceptable with C Line (test code = 3574) Yes Lab Interpretation (test code = 70684-9) [id number]:00:00* Test Item Value Reference Range Interpretation Comme [facility] PSA, TOTAL (test code = 2857-1) 0.64 ng/mL See_Comment N [Automated [employer]] The system which generated this result transmitted reference range: < OR = 4.00 ng/mL. The reference range was not used to interpret this result as normal/abnormal.
[2025-02-12 02:55] LABS: Absolute Lymphocytes (CBC) 1.4 K/uL (0.7-4.9); Hematocrit 43.1 % (39.6-49.0); Hemoglobin 15.0 g/dL (13.6-17.9); MCH 30.7 pg (27.0-35.0); MCHC 34.8 g/dL (32.0-36.0); MCV 88.1 fL (80-100); MPV 8.9 fL (7.6-11.3); Nucleated RBC Absolute Count 0.0 (0-0); Nucleated Red Blood Cells % 0.1 % (0-0); RBC Red Blood Cell Count 4.90 M/uL (4.33-5.43); White Blood Count 12.70 thou/uL (4.3-10.9)
[2025-02-12 03:01] LABS: PT Prothrombin Time 12.7 SECONDS (10-13.0); Protime INR 1.13
[2025-02-12 03:06] LABS: Sqamous Epithelial None Seen /HPF (None Seen); Urine Culture Reflex Order REFLEXED; Urine Microscopic Reflex YN ORDER UMIC; Urine WBC Clump Many /HPF (None Seen)
[2025-02-12 03:18] LABS: ALT/SGPT 44.0 U/L (16-61); AST/SGOT 21.0 U/L (15-37); Albumin 3.7 g/dL (3.4-5.0); Albumin/Globulin Ratio 1.1 (1.1-1.8); Alkaline Phosphatase 52.0 U/L (45-117); Anion Gap 7.0 mEq/L (5.0-15.0); BUN Blood Urea Nitrogen 18.0 mg/dL (7-18); Globulin 3.4 g/dL (2.3-3.5); Glucose Level 101.0 mg/dL (74-106); Potassium 4.0 mEq/L (3.5-5.1)
--- NOTE | 2025-02-12 06:53 | RAD REPORT ---
EXAMINATION: Abdomen Pelvis W Contrast CLINICAL INDICATION: Male, 54 years old.HEMATURIA TECHNIQUE: CT abdomen and pelvis was performed, after the administration of IV contrast, as per [facility] protocol. Axial, sagittal and coronal reconstructions were obtained. One or more of the following dose reduction techniques were used: Automated exposure control, adjustment of the mA and/o r kV according to patient size, and/or iterative reconstruction. Unless otherwise specified, incidental findings do not require dedicated imaging follow-up. [id number]. COMPARISON: No prior exams FINDINGS: LOWER CHEST: No acute process identified.No significant pericardial effusion. Mild coronary artery ca lcifications.Mild circumferential thickening of the distal esophagus which could reflect esophagitis. UPPER GI: No significant abnormality. LIVER: No significant focal abnormality. GALLBLADDER/BILE DUCTS: No biliary ductal dilatation.? PANCREAS: No mass, ductal dilation, or hossein-pancreatic fluid. SPLEEN: Unremarkable. ADRENALS: No adrenal masses. KIDNEYS AND URETERS: No hydronephrosis.No suspicious renal mass.No renal calculi.No ureteral calculi. ABDOMINAL AORTA AND OTHER VESSELS: Mild atherosclerotic changes. PERITONEUM: No abnormal free fluid. No free air. LYMPH NODES: No pathologic lymphadenopathy. ABDOMINAL WALL: Unremarkable SMALL BOWEL/COLON: Small bowel has normal course and caliber. No colonic wall thickening or pericolon ic inflammatory changes.Normal appendix. URINARY BLADDER: Circumferential bladder wall thickening which could reflect cystitis and/or chronic bladder outlet obstruction. Correlate with urinalysis. REPRODUCTIVE ORGANS: Mild prostatomegaly. MUSCULOSKELETAL: No acute or suspicious osseous abnormality. ADDITIONAL FINDINGS: None. IMPRESSION: Bladder wall thickening and mild enhancement could reflect cystitis with/without a component of chron ic bladder outlet obstruction. Mild prostatomegaly noted. No urinary tract calculi.
[2025-02-12] MEDS ORDERED: CEFTRIAXONE 1000 MG/VIAL ONE (06:58)
[2025-02-12] MEDS ORDERED: TAMSULOSIN 0.4 MG SR CAP ONE (06:58)
--- NOTE | 2025-02-12 06:59 | EDPHYS ---
Physician Documentation [facility] Name: Eb Alvarez Age: 54 yrs Sex: Male : 1970 Arrival Date: 02/12/2025 Time: 00:46 Bed 20 Private MD: ED Physician Alex Shirley Historical: - Allergies: 02/12 00:55 Compazine; cp4 - PMHx: 00:55 High Cholesterol; Myocardial infarction; cp4 - Immunization history:: Adult Immunizations up to date. - Infectious Disease History:: Denies. - Social history:: Smoking status: Patient denies any tobacco usage or history of. Vital Signs: 00:54 BP 116 / 81; Pulse 87; Resp 18; Temp 98.4; Pulse Ox 100% ; Weight 114.31 kg; Height 5 cp4 ft. 11 in. ; Pain 0/10; 02:35 BP 107 / 69; Pulse 75; Resp 16; Pulse Ox 98% on R/A; kb4 03:47 BP 104 / 68; Pulse 77; Resp 14; Pulse Ox 94% on R/A; kb4 04:25 BP 129 / 81; Pulse 72; Resp 16; Pulse Ox 100% on R/A; kb4 05:18 BP 120 / 88; Pulse 76; Resp 16; Pulse Ox 100% on R/A; kb4 06:21 BP 101 / 63; Pulse 65; Resp 16; Pulse Ox 99% on R/A; kb4 07:23 BP 120 / 61; Pulse 64; Resp 16; Pulse Ox 98% on R/A; iw 00:54 Body Mass Index 35.15 (114.31 kg, 180.34 cm) cp4 00:54 Pain Scale: Adult cp4 MDM: 02:16 Medical Screening Exam initiated tt7 02/12 02:16 Order name: CBC with Diff; Complete Time: 04:49 tt02/12 02:16 Order name: CMP; Complete Time: 04:49 tt02/12 02:16 Order name: CPK; Complete Time: 04:49 02/12 02:16 Order name: UA Rfx Pineda Cult if indicated; Complete Time: 04:49 tt7 02/12 02:16 Order name: PT-INR; Complete Time: 04:49 02/12 03:14 Order name: Urine Culture EDMS 02/12 04:54 Order name: CT Abd/Pelvis - IV Contrast Only; Complete Time: 06:54 tt7 Administered Medications: 07:10 Drug: tamsulosin 0.4 mg PO once Route: PO; iw 07:10 Drug: Lactulose PO 10 grams 15 ml PO once Volume: 15 ml; Route: PO; iw 07:15 Drug: Rocephin IV 1 grams IV at bolus once; Given slow IV push per pharmacy iw instructions Route: IV; Rate: bolus; Site: right antecubital; Disposition Summary: 02/12/25 06:59 Discharge Ordered Notes: Location: Home tt7 Problem: new tt7 Symptoms: have improved tt7 Condition: Stable tt7 Diagnosis - Acute cystitis with hematuria tt7 - Enlarged prostate with lower urinary tract symptoms tt7 Followup: tt7 - With: Emergency Department - When: As needed - Reason: Followup: tt7 - With: Emiliano Hale MD - When: 2 - 3 days - Reason: Further diagnostic work-up, Recheck today's complaints Discharge Instructions: - Discharge Summary Sheet tt7 - Acute Urinary Retention, Male tt7 - Urinary Tract Infection, Adult, [id number] tt7 Forms: - Medication Reconciliation Form tt7 - Antibiotic Education tt7 - Prescription Opioid Use tt7 - Patient Portal Instructions tt7 - Leadership Thank You Letter tt7 Prescriptions: - tamsulosin 0.4 mg Oral capsule - take 1 capsule ORAL route daily for 21 days; 21 capsule; Refills: 0, Product tt7 Selection Permitted - Cipro 500 mg Oral Tablet - take 1 tablet ORAL route every 12 hours for 10 days; 20 tablet; Refills: 0, tt7 Product Selection Permitted Signatures: Dispatcher [employer] Chrystal Enciso, RN RN iw Leanne Salas cp4 Alex Shirley DO DO tt7 Corrections: (The following items were deleted from the chart) 04:51 04:51 Abdomen Pelvis Wo Con+CT.RAD.BRZ ordered. EDCA EDMS
--- NOTE | 2025-02-12 06:59 | ER ---
Nurse's Notes [facility] Name: Eb Alvarez Age: 54 yrs Sex: Male : 1970 Arrival Date: 02/12/2025 Time: 00:46 Bed 20 Private MD: Diagnosis: Acute cystitis with hematuria;Enlarged prostate with lower urinary tract symptoms Presentation: 02/12 00:54 Chief complaint: Patient states: painful urination with blood in urine. States symptoms cp4 started this afternoon. Coronavirus screen: Client denies travel out of the [place] in the last 14 days. At this time, the client does not indicate any symptoms associated with coronavirus-19. Ebola Screen: Patient negative for fever greater than or equal to 101.5 degrees Fahrenheit, and additional compatible Ebola Virus Disease symptoms Patient denies exposure to infectious person. Patient denies travel to an Ebola-affected area in the 21 days before illness onset. No symptoms or risks identified at this time. Initial Sepsis Screen: Does the patient meet any 2 criteria? No. Patient's initial sepsis screen is negative. Does the patient have a suspected source of infection? No. Patient's initial sepsis screen is negative. Risk Assessment: Do you want to hurt yourself or someone else? Patient reports no desire to harm self or others. Onset of symptoms was February 11, 2025. 00:54 Method Of Arrival: Ambulatory cp4 00:54 Acuity: ABDOUL 3 cp4 Triage Assessment: 00:55 General: Appears in no apparent distress. uncomfortable, Behavior is calm, cooperative, cp4 appropriate for age. Pain: Denies pain. Historical: - Allergies: 00:55 Compazine; cp4 - PMHx: 00:55 High Cholesterol; Myocardial infarction; cp4 - Immunization history:: Adult Immunizations up to date. - Infectious Disease History:: Denies. - Social history:: Smoking status: Patient denies any tobacco usage or history of. Screenin:35 [facility] ED Fall Risk Assessment (Adult) History of falling in the last 3 months, kb4 including since admission No falls in past 3 months (0 pts) Confusion or Disorientation No (0 pts) Intoxicated or Sedated No (0 pts) Impaired Gait No (0 pts) Mobility Assist Device Used No (0 pt) Altered Elimination No (0 pt) Score/Fall Risk Level 0 - 2 = Low Risk. Abuse screen: Denies threats or abuse. Denies injuries from another. Nutritional screening: No deficits noted. Tuberculosis screening: No symptoms or risk factors identified. Assessment: 02:17 Reassessment: bladder scanner preformed, showed 0ml in bladder. kb4 03:47 Reassessment: Patient appears in no apparent distress at this time. Patient and/or kb4 family updated on plan of care and expected duration. Pain level reassessed. Patient is alert, oriented x 3, equal unlabored respirations, skin warm/dry/pink. 05:17 Reassessment: Patient and/or family updated on plan of care and expected duration. Pain kb4 level reassessed. Patient is alert, oriented x 3, equal unlabored respirations, skin warm/dry/pink. 06:21 Reassessment: No changes from previously documented assessment. kb4 07:15 Reassessment: Patient appears in no apparent distress at this time. Patient and/or iw family updated on plan of care and expected duration. Pain level reassessed. Patient is alert, oriented x 3, equal unlabored respirations, skin warm/dry/pink. Vital Signs: 00:54 BP 116 / 81; Pulse 87; Resp 18; Temp 98.4; Pulse Ox 100% ; Weight 114.31 kg; Height 5 cp4 ft. 11 in. ; Pain 0/10; 02:35 BP 107 / 69; Pulse 75; Resp 16; Pulse Ox 98% on R/A; kb4 03:47 BP 104 / 68; Pulse 77; Resp 14; Pulse Ox 94% on R/A; kb4 04:25 BP 129 / 81; Pulse 72; Resp 16; Pulse Ox 100% on R/A; kb4 05:18 BP 120 / 88; Pulse 76; Resp 16; Pulse Ox 100% on R/A; kb4 06:21 BP 101 / 63; Pulse 65; Resp 16; Pulse Ox 99% on R/A; kb4 07:23 BP 120 / 61; Pulse 64; Resp 16; Pulse Ox 98% on R/A; iw 00:54 Body Mass Index 35.15 (114.31 kg, 180.34 cm) cp4 00:54 Pain Scale: Adult cp4 ED Course: 00:50 Patient arrived in ED. im 00:55 Triage completed. cp4 00:55 Arm band placed on right wrist. Patient placed in waiting room. cp4 01:51 Valerie Hughes, RN is Primary Nurse. kb4 02:11 Alex Shirley DO is Attending Physician. tt7 02:36 No provider procedures requiring assistance completed. Missed attempt(s): 20 gauge in al5 left antecubital area. Bleeding controlled, band aid applied, catheter tip intact. 05:19 Patient has correct armband on for positive identification. Provided Education on: uti kb4 prevention . 05:35 CT Abd/Pelvis - IV Contrast Only In Process Unspecified. EDMS 06:58 Emiliano Hale MD is Referral Physician. tt7 07:24 IV discontinued, intact, bleeding controlled, No redness/swelling at site. Pressure iw dressing applied. Administered Medications: 07:10 Drug: tamsulosin 0.4 mg PO once Route: PO; iw 07:10 Drug: Lactulose PO 10 grams 15 ml PO once Volume: 15 ml; Route: PO; iw 07:15 Drug: Rocephin IV 1 grams IV at bolus once; Given slow IV push per pharmacy iw instructions Route: IV; Rate: bolus; Site: right antecubital; Medication: 05:20 VIS not applicable for this client. kb4 Outcome: 06:59 Discharge ordered by MD. tt7 07:24 Discharged to home ambulatory, iw 07:24 Condition: good 07:24 Discharge instructions given to patient, Instructed on discharge instructions, follow up and referral plans. Demonstrated understanding of instructions, follow-up care, medications, Prescriptions given X 2, 07:24 Patient left the ED. iw Signatures: Dispatcher [employer] EDMS Chrystal Garcia RN POLINA iw Ela Garcia Christina cp4 Radha Geiger RN RN al5 Valerie Hughes, RN RN kb4 Alex Shirley DO DO tt7
[2025-02-12] MEDS ORDERED: LACTULOSE 20 GM/30 ML UCUP ONE (07:08)
[2025-02-12 07:29] VITALS: TEMP 98.4
[2025-02-12 07:39] VITALS: BP 120/61; O2SAT 98
== END 2025-02-12 07:24 | disposition home or self-care (01) ==
LOC: ER 00:46
DX: N30.01 Acute cystitis with hematuria (principal); N40.1 Benign prostatic hyperplasia with lower urinary tract symptoms; I25.2 Old myocardial infarction; E78.00 Pure hypercholesterolemia, unspecified
CPT/HCPCS: 87088; 85025; 81001; 87086; 36415; 82550; 85610; 87077; 87186; 80053; 74177; 96374; 99284; Q9967; J0696